=== PATIENT | female | born 1940 | race Caucasian/White ===

== ENCOUNTER 2017-07-24 14:28 | Emergency (ER) | payer MEDICARE, OTHER ==
--- NOTE | 2017-07-24 14:54 | EDM.PDOC ---
ED HPI GENERAL MEDICAL PROBLEM - General Chief Complaint: Laceration Stated Complaint: LEFT SIDE HEAD INJURY Time Seen by Provider: 07/24/17 14:40 Source of Information: Reports: Patient, RN History Limitations: Reports: No Limitations - History of Present Illness INITIAL COMMENTS - FREE TEXT/NARRATIVE: 77 yo female fell today on the ice while visiting the eye doctor. There was no LOC or nausea from the fall. No extremity injury. She did break her glasses and incurred an abrasion to the R anglican area. Her tetanus is UTD. No WERNER. No neck or extremity pain. Onset: Today Onset Date: 07/24/17 Onset Time: 14:00 Duration: Minutes:, Constant Location: Reports: Face Quality: Reports: Dull Severity: Mild Improves with: Reports: None Worsens with: Reports: None Context: Reports: Trauma Associated Symptoms: Reports: No Other Symptoms Treatments PAPER SLITTER: Reports: Other (see below) (none) - Related Data Allergies Allergy/AdvReac Type Severity Reaction Status Date / Time No Known Allergies Allergy Verified 07/24/17 14:44 Home Meds: Home Meds Aspirin [Lo-Dose Aspirin EC] 81 mg PO DAILY 07/24/17 [History] metFORMIN [Glucophage XR] 500 mg PO BIDMEALS 07/24/17 [History] ED ROS GENERAL - Review of Systems Review Of Systems: See Below Constitutional: Reports: No Symptoms HEENT: Reports: No Symptoms Respiratory: Reports: No Symptoms Cardiovascular: Reports: No Symptoms Musculoskeletal: Reports: No Symptoms Skin: Reports: Wound Neurological: Reports: No Symptoms ED EXAM, SKIN/RASH Exam: See Below Exam Limited By: No Limitations General Appearance: Alert, WD/WN, No Apparent Distress Eye Exam: Bilateral Eye: EOMI, Normal Inspection, PERRL Ears: Normal External Exam, Normal Canal, Normal TMs, Hearing Loss Nose: Normal Inspection, Normal Mucosa, No Blood Throat/Mouth: Normal Inspection, Normal Oropharynx, Normal Voice, No Airway Compromise Head: Normocephalic, Facial Tenderness (Mild L anglican tenderness) Neck: Normal Inspection, Supple, Non-Tender, Full Range of Motion Respiratory/Chest: No Respiratory Distress, No Accessory Muscle Use Cardiovascular: Regular Rate, Rhythm Extremities: Normal Inspection, Normal Range of Motion, Non-Tender, No Pedal Edema Neurological: Alert, Oriented, CN II-XII Intact, Normal Cognition, No Motor/ Sensory Deficits Psychiatric: Normal Affect, Normal Mood Skin: Warm, Dry, Wound/Incision (Minor abrasion L anglican area. ) Location, Skin: Face Characteristics: Erythematous (abrasion L anglican) Associated features: Tenderness Course - Vital Signs Last Recorded V/S: Last Vital Signs Temp 34.1 C L 07/24/17 14:47 Pulse 87 07/24/17 14:47 Resp 18 07/24/17 14:47 BP 138/92 H 07/24/17 14:47 Pulse Ox 98 07/24/17 14:47 Departure - Departure Time of Disposition: 14:55 Disposition: Home, Self-Care 01 Condition: Good Clinical Impression: Facial abrasion Qualifiers: Encounter type: initial encounter Qualified Code(s): S00.81XA - Abrasion of other part of head, initial encounter - Discharge Information Referrals: Jatinder Darling MD [Primary Care Provider] - Forms: ED Department Discharge Additional Instructions: Clean wound twice daily with soap and water. Recheck for signs of infection. Use acetaminophen as needed for pain relief.
== END 2017-07-24 14:55 | disposition home or self-care (01) ==
LOC: FB.ED 14:28
DX: S00.81XA Abrasion of other part of head, initial encounter (principal); Z79.82 Long term (current) use of aspirin; Z79.84 Long term (current) use of oral hypoglycemic drugs; W00.9XXA Unspecified fall due to ice and snow, initial encounter
CPT/HCPCS: 99282; 99283

== ENCOUNTER 2020-02-06 14:47 | Inpatient (IN) | payer MEDICARE, OTHER ==
[2020-02-06] MEDS ORDERED: Sodium Chloride 0.9% 500 ML IV ONE (15:31)
--- NOTE | 2020-02-06 16:12 | EDM.PDOC ---
ED HPI GENERAL MEDICAL PROBLEM - General Chief Complaint: Back Pain or Injury Stated Complaint: left hip pain Time Seen by Provider: 02/06/20 16:05 Source of Information: Reports: Other ([facility] RN) History Limitations: Reports: Other (Developmental Delay) - History of Present Illness INITIAL COMMENTS - FREE TEXT/NARRATIVE: Patient fell while attempting to sit in a chair @1 week ago, lowered herself to the floor, no LOC. Since yesterday she has been complaining of left hip pain, low back pain and generalized weakness. Urine is foul smelling per [facility] staff. History is obtained from [facility] RN, patient is unable to give a history. Quality: Reports: Ache Severity: Moderate - Related Data Allergies Allergy/AdvReac Type Severity Reaction Status Date / Time No Known Allergies Allergy Verified 07/24/17 14:44 Home Meds: Home Meds Aspirin [Lo-Dose Aspirin EC] 81 mg PO DAILY 07/24/17 [History] Acetaminophen [Acetaminophen ER] 650 mg PO BID 02/06/20 [History] Acetaminophen [Tylenol] 650 mg PO Q4HR PRN 02/06/20 [History] Cyanocobalamin (Vitamin B-12) [Cyanocobalamin] 1,000 gm MC DAILY 02/06/20 [History] Diclofenac Sodium [Voltaren 1% Gel] 4 gm TOP BID 02/06/20 [History] Glimepiride 2 mg PO DAILY 02/06/20 [History] Insulin Glargine,Hum.Rec.Anlog [Lantus Solostar] 8 unit SQ BEDTIME 02/06/20 [History] Magnesium Hydroxide [Milk of Magnesia] 30 ml PO DAILY PRN 02/06/20 [History] Melatonin 6 mg PO DAILY 02/06/20 [History] Methimazole [Tapazole] 2.5 mg PO DAILY 02/06/20 [History] Multivitamin with Minerals [Multivitamins with Minerals] 1 each PO DAILY 02/06/20 [History] Omeprazole 20 mg PO DAILY 02/06/20 [History] atorvaSTATin [Lipitor] 40 mg PO BEDTIME 02/06/20 [History] lisinopriL [Lisinopril] 10 mg PO DAILY 02/06/20 [History] sitaGLIPtin Phos/Metformin HCl [Janumet 50-1,000 MG] 1 tab PO BID 02/06/20 [History] Past Medical History Cardiovascular History: Reports: Hypertension Psychiatric History: Reports: Other (See Below) (Developmental Delay) Endocrine/Metabolic History: Reports: Diabetes, Type II, Hypothyroidism Social & Family History - Caffeine Use Caffeine Use: Reports: Coffee ED ROS GENERAL - Review of Systems Review Of Systems: Unable To Obtain Reason Not Obtained: Non verbal ED EXAM, GENERAL - Physical Exam Exam: See Below Exam Limited By: No Limitations General Appearance: Alert, WD/WN, No Apparent Distress Eye Exam: Bilateral Eye: EOMI, PERRL Ears: Normal External Exam Nose: Normal Inspection Throat/Mouth: No Airway Compromise Head: Atraumatic, Normocephalic Neck: Full Range of Motion Respiratory/Chest: No Respiratory Distress, Lungs Clear, Normal Breath Sounds Cardiovascular: Regular Rate, Rhythm, No Murmur GI/Abdominal: Normal Bowel Sounds, Soft, Non-Tender, No Distention Back Exam: Full Range of Motion Extremities: Normal Capillary Refill, Other (left hip tenderness) Neurological: Alert, No Motor/Sensory Deficits Skin Exam: Warm, Dry, Intact EKG INTERPRETATION EKG Date: 02/06/20 Time: 16:09 Rhythm: NSR Rate (Beats/Min): 74 [place]: Normal P-Wave: Present QRS: Normal ST-T: Normal QT: Normal Comparison: NA - No Prior EKG Course - Vital Signs Last Recorded V/S: Last Vital Signs Temp 36.9 C 02/06/20 15:04 Pulse 72 02/06/20 17:00 Resp 16 02/06/20 17:00 BP 168/84 H 02/06/20 17:00 Pulse Ox 95 02/06/20 17:00 - Orders/Labs/Meds Orders: Active Orders 24 hr Category Date Time Status EKG Documentation Completion [RC] ASDIRECTED Care 02/06/20 15:31 Active RT Aerosol Therapy [RC] ASDIRECTED Care 02/06/20 18:52 Ordered CULTURE BLOOD [BC] Urgent Lab 02/06/20 16:00 Received CULTURE BLOOD [BC] Urgent Lab 02/06/20 16:05 Received LACTIC ACID [CHEM] Routine Lab 02/06/20 19:00 Ordered Sodium Chloride 0.9% [Saline Flush] Med 02/06/20 15:31 Active 10 ml FLUSH ASDIRECTED PRN Blood Culture x2 Reflex Set [OM.PC] Urgent Oth 02/06/20 15:30 Ordered Saline Lock Insert [OM.PC] Routine Oth 02/06/20 15:31 Ordered EKG 12 Lead [EK] Stat Ther 02/06/20 15:30 Ordered Medication Orders Sodium Chloride (Saline Flush) 10 ml FLUSH ASDIRECTED PRN PRN Reason: Keep Vein Open Last Admin: 02/06/20 17:26 Dose: 10 ml Documented by: JENNY Labs: Laboratory Tests 02/06/20 02/06/20 02/06/20 Range/Units 12:00 16:00 16:00 WBC 9.8 (4.5-12.0) X10-3/uL RBC 3.42 (3.23-5.20) x10(6)uL Hgb 10.5 L (11.5-15.5) g/dL Hct 32.1 (30.0-51.3) % MCV 94.0 (80-96) fL MCH 30.7 (27.7-33.6) pg MCHC 32.7 (32.2-35.4) g/dL RDW 13.4 (11.5-15.5) % Plt Count 473 H (125-369) X10(3)uL MPV 7.7 (7.4-10.4) fL Neut % (Auto) 76.2 (46-82) % Lymph % (Auto) 13.4 (13-37) % [place] % (Auto) 8.4 (4-12) % Eos % (Auto) 2 (1.0-5.0) % Baso % (Auto) 0 (0-2) % Neut # (Auto) 7.5 (1.6-8.3) # Lymph # (Auto) 1.3 (0.6-5.0) # [place] # (Auto) 0.8 (0.0-1.3) # Eos # (Auto) 0.2 (0.0-0.8) # Baso # (Auto) 0.0 (0.0-0.2) # PT 10.4 (9.0-11.1) sec INR 0.96 L (1.00-1.24) APTT 26.3 (24.4-33.2) SECONDS Sodium (135-145) mmol/L Potassium (3.5-5.3) mmol/L Chloride (100-110) mmol/L Carbon Dioxide (21-32) mmol/L BUN (7-18) mg/dL Creatinine (0.55-1.02) mg/dL Est Cr Clr Drug Dosing mL/min Estimated GFR (MDRD) (>60) BUN/Creatinine Ratio (9-20) Glucose (80-116) mg/dL Lactic Acid (0.4-2.0) mmol/L Calcium (8.6-10.2) mg/dL Total Bilirubin (0.1-1.3) mg/dL AST (5-25) IU/L ALT (12-36) U/L Alkaline Phosphatase (56-112) IU/L Troponin I (4.0-60.3) pg/mL Total Protein (6.0-8.0) g/dL Albumin (3.2-4.6) g/dL Globulin g/dL Albumin/Globulin Ratio Urine Color Yellow (YELLOW) Urine Appearance Clear (CLEAR) Urine pH 7.0 H (5.0-6.5) Ur Specific [place] 1.015 (1.010-1.025) Urine Protein 30 H (NEGATIVE) mg/dL Urine Glucose (UA) Normal (NORMAL) mg/dL Urine Ketones Negative (NEGATIVE) mg/dL Urine Occult Blood Trace (NEGATIVE) Urine Nitrite Negative (NEGATIVE) Urine Bilirubin Negative (NEGATIVE) Urine Urobilinogen Normal (NEGATIVE) mg/dL Ur Leukocyte Esterase Negative (NEGATIVE) Urine RBC 0-5 (0-5) Urine WBC 0-5 (0-5) Ur Squamous Epith Cells Occasional (NS,R,O) Urine Bacteria Few H (NS) 02/06/20 02/06/20 02/06/20 Range/Units 16:00 16:00 16:00 WBC (4.5-12.0) X10-3/uL RBC (3.23-5.20) x10(6)uL Hgb (11.5-15.5) g/dL Hct (30.0-51.3) % MCV (80-96) fL MCH (27.7-33.6) pg MCHC (32.2-35.4) g/dL RDW (11.5-15.5) % Plt Count (125-369) X10(3)uL MPV (7.4-10.4) fL Neut % (Auto) (46-82) % Lymph % (Auto) (13-37) % [place] % (Auto) (4-12) % Eos % (Auto) (1.0-5.0) % Baso % (Auto) (0-2) % Neut # (Auto) (1.6-8.3) # Lymph # (Auto) (0.6-5.0) # [place] # (Auto) (0.0-1.3) # Eos # (Auto) (0.0-0.8) # Baso # (Auto) (0.0-0.2) # PT (9.0-11.1) sec INR (1.00-1.24) APTT (24.4-33.2) SECONDS Sodium 141 (135-145) mmol/L Potassium 5.2 (3.5-5.3) mmol/L Chloride 106 (100-110) mmol/L Carbon Dioxide 23 (21-32) mmol/L BUN 38 H (7-18) mg/dL Creatinine 1.2 H (0.55-1.02) mg/dL Est Cr Clr Drug Dosing 28.21 mL/min Estimated GFR (MDRD) 43 L (>60) BUN/Creatinine Ratio 31.7 H (9-20) Glucose 120 H (80-116) mg/dL Lactic Acid 4.1 H* (0.4-2.0) mmol/L Calcium 8.8 (8.6-10.2) mg/dL Total Bilirubin 0.2 (0.1-1.3) mg/dL AST 17 (5-25) IU/L ALT 24 D (12-36) U/L Alkaline Phosphatase 106 (56-112) IU/L Troponin I 9.4 (4.0-60.3) pg/mL Total Protein 6.7 (6.0-8.0) g/dL Albumin 2.9 L (3.2-4.6) g/dL Globulin 3.8 g/dL Albumin/Globulin Ratio 0.8 Urine Color (YELLOW) Urine Appearance (CLEAR) Urine pH (5.0-6.5) Ur Specific [place] (1.010-1.025) Urine Protein (NEGATIVE) mg/dL Urine Glucose (UA) (NORMAL) mg/dL Urine Ketones (NEGATIVE) mg/dL Urine Occult Blood (NEGATIVE) Urine Nitrite (NEGATIVE) Urine Bilirubin (NEGATIVE) Urine Urobilinogen (NEGATIVE) mg/dL Ur Leukocyte Esterase (NEGATIVE) Urine RBC (0-5) Urine WBC (0-5) Ur Squamous Epith Cells (NS,R,O) Urine Bacteria (NS) Meds: Medications Generic Name Dose Route Start Last Admin Trade Name Freq PRN Reason Stop Dose Admin Sodium Chloride 10 ml 02/06/20 15:31 02/06/20 17:26 Saline Flush FLUSH 10 ml ASDIRECTED PRN Administration Keep Vein Open Discontinued Medications Generic Name Dose Route Start Last Admin Trade Name Freq PRN Reason Stop Dose Admin Albuterol 2.5 mg 02/06/20 18:51 Proventil Neb Soln NEB 02/06/20 18:52 ONETIME ONE Furosemide 20 mg 02/06/20 18:51 Lasix IVPUSH 02/06/20 18:52 ONETIME ONE Sodium Chloride 500 mls @ 500 mls/hr 02/06/20 15:31 02/06/20 16:10 Normal Saline IV 02/06/20 16:30 500 mls/hr .BOLUS ONE Administration Sodium Chloride 1,000 mls @ 999 mls/hr 02/06/20 16:40 02/06/20 17:26 Normal Saline IV 02/06/20 17:40 999 mls/hr .BOLUS ONE Administration Piperacillin Sod/Tazobactam 50 mls @ 100 mls/hr 02/06/20 16:43 02/06/20 16:54 Sod 3.375 gm/ Sodium Chloride IV 02/06/20 17:12 100 mls/hr .ONCE ONE Administration Vancomycin HCl 1.25 gm/ Sodium 250 mls @ 167 mls/hr 02/06/20 16:44 02/06/20 17:28 Chloride IV 02/06/20 18:13 167 mls/hr .ONCE ONE Administration Ketorolac Tromethamine 15 mg 02/06/20 17:17 02/06/20 17:44 Toradol IVPUSH 02/06/20 17:18 15 mg ONETIME ONE Administration - Radiology Interpretation Free Text/Narrative:: CXR: No acute process, but cannot completely rule out infiltrates in the lung bases. (per Dr. Beltrán) Head CT w/o contrast: No acute process. (per Dr. Beltrán) CT C-spine w/o contrast: No fracture or subluxation. (per Dr. Beltrán) CT L-spine w/o contrast: No fracture of subluxation. (per Dr. Beltrán) Pelvis CT w/ contrast: No fractures. (per Dr. Beltrán) - Re-Assessments/Exams Free Text/Narrative Re-Assessment/Exam: 02/06/20 18:53 Sa02 dropped to 88% RA, wheezes ascultated in bilateral lung barrera, no respiratory distress, Sa02 97% on 2L 02 NC. Patient most likely fluid overloaded. Will order Lasix 20mg IV and Albuterol Neb. 02/06/20 19:00 Patient care transferred to Dr. Klein. Departure - Departure Time of Disposition: 19:00 Disposition: Still A Patient 30 Clinical Impression: Elevated lactic acid level Fluid overload Qualifiers: Hypervolemia type: unspecified Qualified Code(s): E87.70 - Fluid overload, unspecified - Discharge Information Referrals: Jatinder Darling MD [Primary Care Provider] - Forms: ED Department Discharge Sepsis Event Note (ED) - Evaluation Sepsis Screening Result: No Definite Risk - Focused Exam Vital Signs: Vital Signs Temp Pulse Resp BP Pulse Ox 02/06/20 17:00 72 16 168/84 H 95 02/06/20 16:45 72 16 172/68 H 95 02/06/20 16:39 74 16 177/64 H 95 02/06/20 15:45 72 16 139/64 95 02/06/20 15:04 36.9 C 74 18 182/76 H 95 02/06/20 14:47 36.4 C 82 15 162/95 H 98 - My Orders Last 24 Hours: My Active Orders 02/06/20 15:30 Blood Culture x2 Reflex Set [OM.PC] Urgent EKG 12 Lead [EK] Stat 02/06/20 15:31 EKG Documentation Completion [RC] ASDIRECTED Sodium Chloride 0.9% [Saline Flush] 10 ml FLUSH ASDIRECTED PRN Saline Lock Insert [OM.PC] Routine 02/06/20 16:00 CULTURE BLOOD [BC] Urgent 02/06/20 16:05 CULTURE BLOOD [BC] Urgent 02/06/20 18:52 RT Aerosol Therapy [RC] ASDIRECTED 02/06/20 19:00 LACTIC ACID [CHEM] Routine - Assessment/Plan Last 24 Hours: My Active Orders 02/06/20 15:30 Blood Culture x2 Reflex Set [OM.PC] Urgent EKG 12 Lead [EK] Stat 02/06/20 15:31 EKG Documentation Completion [RC] ASDIRECTED Sodium Chloride 0.9% [Saline Flush] 10 ml FLUSH ASDIRECTED PRN Saline Lock Insert [OM.PC] Routine 02/06/20 16:00 CULTURE BLOOD [BC] Urgent 02/06/20 16:05 CULTURE BLOOD [BC] Urgent 02/06/20 18:52 RT Aerosol Therapy [RC] ASDIRECTED 02/06/20 19:00 LACTIC ACID [CHEM] Routine
[2020-02-06] MEDS ORDERED: Sodium Chloride 0.9% 1,000 ML IV ONE (16:40)
[2020-02-06] MEDS ORDERED: Piperacillin/Tazobactam 3.375 GM in Sodium Chloride 0.9% 50 ML IV ONE (16:43)
[2020-02-06] MEDS ORDERED: Ketorolac 30 MG/ML SDV IVPUSH ONE (17:17)
[2020-02-06] MEDS: Sodium Chloride 0.9% 10 ML Syringe FLUSH PRN ×2 (17:26→19:00)
--- NOTE | 2020-02-06 18:05 | CT ---
INDICATION: Fall. CT HEAD WITHOUT CONTRAST: Spiral 3.75 mm axial sections were obtained through the brain without contrast 02/06/2020 - no comparisons. Total exam DLP was 1322.30 mGy-cm. The paranasal sinuses and right mastoid air cells were well aerated. The left mastoid air cells were mostly opacified, possibly on the basis of mastoiditis - correlate clinically. No cranial fracture site was noted. The cranium appears to be intact. The orbits were intact. Calcifications are noted in the vertebral and internal carotid arteries. No shift of midline structures was noted. Ventricles appear to be only minimally prominent. Cortical sulci are slightly prominent, suggesting generalized atrophy of mild degree. There are white matter changes likely on the basis of mild microvascular disease-type changes. No evidence of a bleeding site or hematoma was identified. Prominent choroid plexuses calcifications are noted incidentally. IMPRESSION: 1. No acute intracranial abnormality. 2. Mild generalized atrophy. 3. Cerebrovascular disease. INDICATION: Fall. CT OF THE CERVICAL SPINE: Spiral 2.5 mm axial sections were obtained through the cervical spine with sagittal and coronal reconstructions 02/06/20 - no comparisons. Total exam DLP was 398.87 mGy-cm. Degenerative changes are noted at the odontoatlantian joint. The odontoid appeared to be intact. The atlas and axis appeared to be intact. Vertebral body heights appear to be well maintained without a definite acute fracture or dislocation identified. Moderate to moderately severe anterior bridging hypertrophic degenerative changes are noted at C3 through C7, somewhat less prominent at C6-7. There are also bridging hyperostotic changes at C7-T1 and T1-T2 and to a lesser extent T2- T3 anteriorly off vertebral bodies. Posterior hypertrophic changes are noted at C4-5. Degenerative disk disease with narrowing of the disk spaces is noted at C3 through C6 with relatively mild narrowing at C6-7. Sclerosis and subchondral cystic changes are noted throughout the cervical spine including at the odontoatlantian joint to a lesser extent. Uncinate joint degenerative changes are noted from C2 through C7-T1. Narrowing of neural foraminal is noted in the cervical spine up to the C5-6 level, more prominently on the right than left. Prevertebral spaces appear to be normal. There is slight straightening of the normal cervical lordosis of the mid to upper cervical spine. Hypertrophic changes are noted at the lateral masses prominently at C2-3 on the left and to a relatively mild degree elsewhere in the remainder of the spine. There appear to be some areas of scarring in the lungs visualized. IMPRESSION: 1. No definite acute fracture or dislocation. 2. Diffuse degenerative changes and disk disease. INDICATION: Fall. COMPUTERIZED TOMOGRAPHY OF THE LUMBOSACRAL SPINE WITHOUT CONTRAST: Spiral 2.5 mm axial sections were obtained through the lumbosacral spine and revealed demineralization, compatible with osteoporosis. Total exam DLP was 720.77 mGy-cm. Vertebral body heights were fairly well maintained. Neural foramina for the most part were fairly patent but with some bulging disks in the mid to lower levels, definitely impinging at least slightly on the neural foramina, especially below the L1-2 level. Narrowing of the disk space and vacuum disk phenomenon are noted at L5-S1 with hypertrophic degenerative changes anteriorly and posteriorly off the L5-S1 vertebral bodies. There are also hypertrophic degenerative changes noted off the thoracolumbar though lumbosacral levels to varying degrees, most severe at the L1-2, L2-3 levels laterally on the right especially. A definite acute fracture or dislocation was not identified. Dextroconcave scoliosis of the upper middle lumbar spine is noted. Mild spinal stenosis is noted at L2-3 due to bulging disk and prominent ligamentum flava as well as hypertrophic changes at the posterior elements. Slightly more prominent spinal stenosis is noted at the L3-4 level for the same reasons. Milder spinal stenosis is noted at L4-5. IMPRESSION: 1. No acute fracture or dislocation identified. 2. Hypertrophic degenerative changes and bulging disks with areas of spinal stenosis, most prominent at L3-4. 3. Moderate dextroconcave scoliosis upper middle lumbar spine. INDICATION: Fall. CT OF THE PELVIS WITHOUT CONTRAST: Spiral axial 1.25 mm sections were obtained through the pelvis with sagittal and coronal reconstructions 02/06/20 - no comparisons. Total exam DLP was 377.53 mGy-cm. Degenerative changes and disk disease noted at L5-S1. Mild to moderate degenerative changes are noted at the sacroiliac joints, right greater than left. Sacroiliac joints were otherwise intact. Extensive arterial calcifications are noted. The sacrum, coccyx and remainder of the pelvis as well as the hips appear to be intact without a definite acute fracture or dislocation. Sclerotic density in the right ilium inferoposteriorly is compatible with a benign bone island. There are some degenerative changes at the hip joints, minimal on the left, mild to moderate on the right. Sigmoid diverticulosis is noted without definite evidence of diverticulitis. IMPRESSION: 1. No evidence of an acute fracture or dislocation. 2. ASD. 3. Sigmoid diverticulosis. Report was called to Dr. Stapleton for all of the above reports at 1723 hours. [facility]
--- NOTE | 2020-02-06 18:08 | CR ---
INDICATION: Elevated lactic acid. CHEST X-RAY, ONE VIEW: Portable AP upright view of the chest was obtained 02/06/20 and revealed the heart to be enlarged. Very poor inspiration is noted, emphasizing markings. No definite CHF or consolidating pneumonia was identified. No large pleural effusion was seen. IMPRESSION: Somewhat limited study. No definite acute process, but difficult to entirely exclude minimal patchy pneumonia at the lung bases. No gross evidence of CHF is seen. Report was called to Dr. Stapleton at 1723 hours. [facility]
[2020-02-06] MEDS ORDERED: Furosemide 20 MG/2 ML VIAL IVPUSH ONE (18:51)
[2020-02-06] MEDS ORDERED: Albuterol 0.083% 2.5 MG/3 ML Neb Soln NEB ONE (18:51)
[2020-02-06] MEDS ORDERED: Albuterol 0.083% 2.5 MG/3 ML Neb Soln NEB PRN (19:27)
[2020-02-06] MEDS ORDERED: Acetaminophen 325 MG Tab PO PRN (19:30)
[2020-02-06] MEDS ORDERED: metFORMIN 500 MG Tab PO ONE (22:24)
[2020-02-06] MEDS: Non-Formulary Medication 1 Each (Sitagliptin Phos/Metformin Hcl [Janumet 50-1,000 Mg] 1 TA PO SCH (22:28)
[2020-02-06] MEDS: Acetaminophen 650 MG Tab.ER PO SCH (22:38)
[2020-02-07] MEDS: Sodium Chloride 0.9% 10 ML Syringe FLUSH PRN (07:57)
[2020-02-07] MEDS ORDERED: Aspirin 81 MG Tab.EC PO SCH (09:00)
[2020-02-07] MEDS ORDERED: Glimepiride 2 MG Tab PO SCH (09:00)
[2020-02-07] MEDS ORDERED: Melatonin 3 MG Tab PO SCH (09:00)
[2020-02-07] MEDS ORDERED: Non-Formulary Medication 1 Each (Omeprazole [Omeprazole] 20 MG) PO SCH (09:00)
[2020-02-07] MEDS ORDERED: Lisinopril 10 MG Tab PO SCH (09:00)
--- NOTE | 2020-02-07 10:37 | ER ---
DATE SEEN: 02/06/2020 REASON FOR VISIT: Fall. HISTORY OF PRESENT ILLNESS: This is an 80-year-old female who was seen earlier by Dr. Stapleton. He handed over to me. [facility] Initial workup for any trauma was negative. She, however, has been noted to be extremely weak and needing 2 people for assistance and transfer. There has been no report of fever. She became hypoxic in the ER after she got 1 L of normal saline. PHYSICAL EXAMINATION: GENERAL: She is not in distress. VITAL SIGNS: Blood pressure is 172/68 and she does have normal pulse and oxygenation of 95%. ENT: Negative. NECK: Supple. CARDIOVASCULAR: Normal. RESPIRATORY SYSTEM: She has end-expiratory rhonchi. EXTREMITIES: No edema. MENTAL STATUS: She is alert. Mild cognitive dysfunction is noted. LABORATORY DATA: Reviewed including a recent lactic acid of 2.8, previously 4.1 and normal white cell count. Chest x-ray was negative. UA was normal. IMPRESSION: 1. Generalized weakness. 2. Hypertension. 3. Lower back pain and hip pain. PLAN: We will admit for observation, pain control, and physical therapy. Hopefully, she will be able to go home tomorrow or the day after tomorrow. /[id number] MAIKEL/SAUL
[2020-02-07] MEDS: Acetaminophen 650 MG Tab.ER PO SCH (11:20)
[2020-02-07] MEDS: Non-Formulary Medication 1 Each (Sitagliptin Phos/Metformin Hcl [Janumet 50-1,000 Mg] 1 TA PO SCH (11:21)
[2020-02-07] MEDS: Acetaminophen 500 MG Tab PO SCH ×3 (11:33→22:23)
[2020-02-07] MEDS: Pantoprazole 40 MG Tab.CR PO SCH (11:33)
[2020-02-07] MEDS: Aspirin 81 MG Tab.EC PO SCH (11:33)
[2020-02-07] MEDS: Ibuprofen 200 MG Tab PO SCH ×3 (11:33→22:23)
[2020-02-07] MEDS: Lisinopril 10 MG Tab PO SCH (11:33)
[2020-02-07] MEDS: Glimepiride 2 MG Tab PO SCH (11:33)
--- NOTE | 2020-02-07 11:53 | PCM.HP.2 ---
H&P History of Present Illness - General Date of Service: 02/07/20 Admit Problem/Dx: Admission Diagnosis/Problem Admission Diagnosis/Problem Weakness Source of Information: Patient, EMS Notes Reviewed, Family - History of Present Illness Initial Comments - Free Text/Narative: Hailey presented to ER yesterday with increased weakness, for past few days, usually independent for meals, sit up and stand up at [facility]. Had a fall 2 weeks ago, forgot to lock the brakes on her front wheel walker and went to sit on it and walker went out from underneath her. Was having more left hip pain, not able to sit up for lunch today, spoke with Toby Osorio PA-C and Dr Darling, would advised transfer to ER for evaluation. History limited due patient's developmental delay but this morning states her left hip hurts, no fractures were seen on CT scans yesterday, no pneumonia on x-ray. Denies being short of b reath, chest pain, cough, stomach doesn't hurt. Her sister's stated that they do have PT/OT at [facility] if she would need to continue therapies. [place] staff reported foul smelling urine but UA here is negative. Lactic acid was elevated in ER, received 1 dose of Zosyn & Vancomycin, but not continued on the floor. WBC was normal last night and this morning. She is on metformin in Janumet combination, was given dose last night but held this morning. No fevers. No hypotension. Left Hip Pain Score (Numeric/FACES): 4 - Related Data Allergies/Adverse Reactions: Allergies Allergy/AdvReac Type Severity Reaction Status Date / Time No Known Allergies Allergy Verified 07/24/17 14:44 Home Medications: Home Meds Aspirin [Lo-Dose Aspirin EC] 81 mg PO DAILY 07/24/17 [History] Acetaminophen [Acetaminophen ER] 650 mg PO BID 02/06/20 [History] Acetaminophen [Tylenol] 650 mg PO Q4HR PRN 02/06/20 [History] Cyanocobalamin (Vitamin B-12) [Cyanocobalamin] 1,000 gm MC DAILY 02/06/20 [History] Diclofenac Sodium [Voltaren 1% Gel] 4 gm TOP BID 02/06/20 [History] Glimepiride 2 mg PO DAILY 02/06/20 [History] Insulin Glargine,Hum.Rec.Anlog [Lantus Solostar] 8 unit SQ BEDTIME 02/06/20 [History] Magnesium Hydroxide [Milk of Magnesia] 30 ml PO DAILY PRN 02/06/20 [History] Melatonin 6 mg PO DAILY 02/06/20 [History] Methimazole [Tapazole] 2.5 mg PO DAILY 02/06/20 [History] Multivitamin with Minerals [Multivitamins with Minerals] 1 each PO DAILY 02/06/20 [History] Omeprazole 20 mg PO DAILY 02/06/20 [History] atorvaSTATin [Lipitor] 40 mg PO BEDTIME 02/06/20 [History] lisinopriL [Lisinopril] 10 mg PO DAILY 02/06/20 [History] sitaGLIPtin Phos/Metformin HCl [Janumet 50-1,000 MG] 1 tab PO BID 02/06/20 [History] Past Medical History - Past Health History Medical/Surgical History: Denies Medical/Surgical History HEENT History: Reports: Cataract, Hard of Hearing, Impaired Vision Cardiovascular History: Reports: Hypertension Gastrointestinal History: Reports: Diverticulosis Neurological History: Reports: Other (See Below) Other Neuro History: Intellectual disability. Psychiatric History: Reports: Learning Disability Endocrine/Metabolic History: Reports: Diabetes, Type II, Hypothyroidism Hematologic History: Reports: Anemia Social & Family History - Family History Family Medical History: Noncontributory - Tobacco Use Smoking Status *Q: Never Smoker Second Hand Smoke Exposure: No - Caffeine Use Caffeine Use: Reports: Soda - Recreational Drug Use Recreational Drug Use: No H&P Review of Systems - Review of Systems: Review Of Systems: See Below General: Denies: Fever Pulmonary: Reports: No Symptoms Cardiovascular: Reports: No Symptoms Gastrointestinal: Reports: No Symptoms Musculoskeletal: Reports: Joint Pain (left hip) Skin: Reports: No Symptoms Neurological: Reports: Pre-Existing Deficit Exam - Exam Exam: See Below - Vital Signs Vital Signs: Last Vital Signs Temp 98.1 F 02/07/20 07:50 Pulse 84 02/07/20 07:50 Resp 20 02/07/20 07:50 BP 144/82 H 02/07/20 11:33 Pulse Ox 95 02/07/20 07:50 Weight: 131 lb 14.4 oz - Exam General: Alert, Oriented (person), Cooperative. No: Mild Distress HEENT: PERRLA, Conjunctiva Clear, Hearing Intact, Mucosa Moist & Jaconita Lungs: Clear to Auscultation, Normal Respiratory Effort Cardiovascular: Regular Rate, Regular Rhythm GI/Abdominal Exam: Normal Bowel Sounds, Soft, Non-Tender, No Distention (Female) Exam: Deferred Rectal (Female) Exam: Deferred Extremities: No Pedal Edema, Leg Pain (left hip TTP over greater trochanter). No: Joint Swelling, Increased Warmth, Redness Peripheral Pulses: 2+: Radial (L), Radial (R) Skin: Warm, Dry, Intact Neuro Extensive - Motor, Sensory, Reflexes: Other (Developmental delay) - Patient Data Lab Results Last 24 hrs: Laboratory Results - last 24 hr 02/06/20 02/06/20 02/06/20 Range/Units 12:00 16:00 16:00 WBC 9.8 (4.5-12.0) X10-3/uL RBC 3.42 (3.23-5.20) x10(6)uL Hgb 10.5 L (11.5-15.5) g/dL Hct 32.1 (30.0-51.3) % MCV 94.0 (80-96) fL MCH 30.7 (27.7-33.6) pg MCHC 32.7 (32.2-35.4) g/dL RDW 13.4 (11.5-15.5) % Plt Count 473 H (125-369) X10(3)uL MPV 7.7 (7.4-10.4) fL Neut % (Auto) 76.2 (46-82) % Lymph % (Auto) 13.4 (13-37) % [place] % (Auto) 8.4 (4-12) % Eos % (Auto) 2 (1.0-5.0) % Baso % (Auto) 0 (0-2) % Neut # (Auto) 7.5 (1.6-8.3) # Lymph # (Auto) 1.3 (0.6-5.0) # [place] # (Auto) 0.8 (0.0-1.3) # Eos # (Auto) 0.2 (0.0-0.8) # Baso # (Auto) 0.0 (0.0-0.2) # PT 10.4 (9.0-11.1) sec INR 0.96 L (1.00-1.24) APTT 26.3 (24.4-33.2) SECONDS Sodium (135-145) mmol/L Potassium (3.5-5.3) mmol/L Chloride (100-110) mmol/L Carbon Dioxide (21-32) mmol/L BUN (7-18) mg/dL Creatinine (0.55-1.02) mg/dL Est Cr Clr Drug Dosing mL/min Estimated GFR (MDRD) (>60) BUN/Creatinine Ratio (9-20) Glucose (80-116) mg/dL POC Glucose (80-116) mg/dL Lactic Acid (0.4-2.0) mmol/L Calcium (8.6-10.2) mg/dL Total Bilirubin (0.1-1.3) mg/dL AST (5-25) IU/L ALT (12-36) U/L Alkaline Phosphatase (56-112) IU/L Troponin I (4.0-60.3) pg/mL Total Protein (6.0-8.0) g/dL Albumin (3.2-4.6) g/dL Globulin g/dL Albumin/Globulin Ratio Urine Color Yellow (YELLOW) Urine Appearance Clear (CLEAR) Urine pH 7.0 H (5.0-6.5) Ur Specific [place] 1.015 (1.010-1.025) Urine Protein 30 H (NEGATIVE) mg/dL Urine Glucose (UA) Normal (NORMAL) mg/dL Urine Ketones Negative (NEGATIVE) mg/dL Urine Occult Blood Trace (NEGATIVE) Urine Nitrite Negative (NEGATIVE) Urine Bilirubin Negative (NEGATIVE) Urine Urobilinogen Normal (NEGATIVE) mg/dL Ur Leukocyte Esterase Negative (NEGATIVE) Urine RBC 0-5 (0-5) Urine WBC 0-5 (0-5) Ur Squamous Epith Cells Occasional (NS,R,O) Urine Bacteria Few H (NS) 02/06/20 02/06/20 02/06/20 Range/Units 16:00 16:00 16:00 WBC (4.5-12.0) X10-3/uL RBC (3.23-5.20) x10(6)uL Hgb (11.5-15.5) g/dL Hct (30.0-51.3) % MCV (80-96) fL MCH (27.7-33.6) pg MCHC (32.2-35.4) g/dL RDW (11.5-15.5) % Plt Count (125-369) X10(3)uL MPV (7.4-10.4) fL Neut % (Auto) (46-82) % Lymph % (Auto) (13-37) % [place] % (Auto) (4-12) % Eos % (Auto) (1.0-5.0) % Baso % (Auto) (0-2) % Neut # (Auto) (1.6-8.3) # Lymph # (Auto) (0.6-5.0) # [place] # (Auto) (0.0-1.3) # Eos # (Auto) (0.0-0.8) # Baso # (Auto) (0.0-0.2) # PT (9.0-11.1) sec INR (1.00-1.24) APTT (24.4-33.2) SECONDS Sodium 141 (135-145) mmol/L Potassium 5.2 (3.5-5.3) mmol/L Chloride 106 (100-110) mmol/L Carbon Dioxide 23 (21-32) mmol/L BUN 38 H (7-18) mg/dL Creatinine 1.2 H (0.55-1.02) mg/dL Est Cr Clr Drug Dosing 28.21 mL/min Estimated GFR (MDRD) 43 L (>60) BUN/Creatinine Ratio 31.7 H (9-20) Glucose 120 H (80-116) mg/dL POC Glucose (80-116) mg/dL Lactic Acid 4.1 H* (0.4-2.0) mmol/L Calcium 8.8 (8.6-10.2) mg/dL Total Bilirubin 0.2 (0.1-1.3) mg/dL AST 17 (5-25) IU/L ALT 24 D (12-36) U/L Alkaline Phosphatase 106 (56-112) IU/L Troponin I 9.4 (4.0-60.3) pg/mL Total Protein 6.7 (6.0-8.0) g/dL Albumin 2.9 L (3.2-4.6) g/dL Globulin 3.8 g/dL Albumin/Globulin Ratio 0.8 Urine Color (YELLOW) Urine Appearance (CLEAR) Urine pH (5.0-6.5) Ur Specific [place] (1.010-1.025) Urine Protein (NEGATIVE) mg/dL Urine Glucose (UA) (NORMAL) mg/dL Urine Ketones (NEGATIVE) mg/dL Urine Occult Blood (NEGATIVE) Urine Nitrite (NEGATIVE) Urine Bilirubin (NEGATIVE) Urine Urobilinogen (NEGATIVE) mg/dL Ur Leukocyte Esterase (NEGATIVE) Urine RBC (0-5) Urine WBC (0-5) Ur Squamous Epith Cells (NS,R,O) Urine Bacteria (NS) 02/06/20 02/07/20 02/07/20 Range/Units 19:10 06:40 06:40 WBC 8.4 (4.5-12.0) X10-3/uL RBC 3.26 (3.23-5.20) x10(6)uL Hgb 9.9 L (11.5-15.5) g/dL Hct 30.6 (30.0-51.3) % MCV 94.0 (80-96) fL MCH 30.4 (27.7-33.6) pg MCHC 32.3 (32.2-35.4) g/dL RDW 13.5 (11.5-15.5) % Plt Count 442 H (125-369) X10(3)uL MPV 7.6 (7.4-10.4) fL Neut % (Auto) 70.6 (46-82) % Lymph % (Auto) 18.4 (13-37) % [place] % (Auto) 8.4 (4-12) % Eos % (Auto) 2 (1.0-5.0) % Baso % (Auto) 1 (0-2) % Neut # (Auto) 6.0 (1.6-8.3) # Lymph # (Auto) 1.5 (0.6-5.0) # [place] # (Auto) 0.7 (0.0-1.3) # Eos # (Auto) 0.2 (0.0-0.8) # Baso # (Auto) 0.0 (0.0-0.2) # PT (9.0-11.1) sec INR (1.00-1.24) APTT (24.4-33.2) SECONDS Sodium 142 (135-145) mmol/L Potassium 4.8 (3.5-5.3) mmol/L Chloride 110 (100-110) mmol/L Carbon Dioxide 23 (21-32) mmol/L BUN 31 H (7-18) mg/dL Creatinine 1.0 (0.55-1.02) mg/dL Est Cr Clr Drug Dosing 33.86 mL/min Estimated GFR (MDRD) 53 L (>60) BUN/Creatinine Ratio 31.0 H (9-20) Glucose 74 L (80-116) mg/dL POC Glucose (80-116) mg/dL Lactic Acid 2.8 H* (0.4-2.0) mmol/L Calcium 8.2 L (8.6-10.2) mg/dL Total Bilirubin (0.1-1.3) mg/dL AST (5-25) IU/L ALT (12-36) U/L Alkaline Phosphatase (56-112) IU/L Troponin I (4.0-60.3) pg/mL Total Protein (6.0-8.0) g/dL Albumin (3.2-4.6) g/dL Globulin g/dL Albumin/Globulin Ratio Urine Color (YELLOW) Urine Appearance (CLEAR) Urine pH (5.0-6.5) Ur Specific [place] (1.010-1.025) Urine Protein (NEGATIVE) mg/dL Urine Glucose (UA) (NORMAL) mg/dL Urine Ketones (NEGATIVE) mg/dL Urine Occult Blood (NEGATIVE) Urine Nitrite (NEGATIVE) Urine Bilirubin (NEGATIVE) Urine Urobilinogen (NEGATIVE) mg/dL Ur Leukocyte Esterase (NEGATIVE) Urine RBC (0-5) Urine WBC (0-5) Ur Squamous Epith Cells (NS,R,O) Urine Bacteria (NS) 02/07/20 02/07/20 Range/Units 06:40 11:29 WBC (4.5-12.0) X10-3/uL RBC (3.23-5.20) x10(6)uL Hgb (11.5-15.5) g/dL Hct (30.0-51.3) % MCV (80-96) fL MCH (27.7-33.6) pg MCHC (32.2-35.4) g/dL RDW (11.5-15.5) % Plt Count (125-369) X10(3)uL MPV (7.4-10.4) fL Neut % (Auto) (46-82) % Lymph % (Auto) (13-37) % [place] % (Auto) (4-12) % Eos % (Auto) (1.0-5.0) % Baso % (Auto) (0-2) % Neut # (Auto) (1.6-8.3) # Lymph # (Auto) (0.6-5.0) # [place] # (Auto) (0.0-1.3) # Eos # (Auto) (0.0-0.8) # Baso # (Auto) (0.0-0.2) # PT (9.0-11.1) sec INR (1.00-1.24) APTT (24.4-33.2) SECONDS Sodium (135-145) mmol/L Potassium (3.5-5.3) mmol/L Chloride (100-110) mmol/L Carbon Dioxide (21-32) mmol/L BUN (7-18) mg/dL Creatinine (0.55-1.02) mg/dL Est Cr Clr Drug Dosing mL/min Estimated GFR (MDRD) (>60) BUN/Creatinine Ratio (9-20) Glucose (80-116) mg/dL POC Glucose 154 H (80-116) mg/dL Lactic Acid (0.4-2.0) mmol/L Calcium (8.6-10.2) mg/dL Total Bilirubin (0.1-1.3) mg/dL AST (5-25) IU/L ALT (12-36) U/L Alkaline Phosphatase (56-112) IU/L Troponin I 9.5 (4.0-60.3) pg/mL Total Protein (6.0-8.0) g/dL Albumin (3.2-4.6) g/dL Globulin g/dL Albumin/Globulin Ratio Urine Color (YELLOW) Urine Appearance (CLEAR) Urine pH (5.0-6.5) Ur Specific [place] (1.010-1.025) Urine Protein (NEGATIVE) mg/dL Urine Glucose (UA) (NORMAL) mg/dL Urine Ketones (NEGATIVE) mg/dL Urine Occult Blood (NEGATIVE) Urine Nitrite (NEGATIVE) Urine Bilirubin (NEGATIVE) Urine Urobilinogen (NEGATIVE) mg/dL Ur Leukocyte Esterase (NEGATIVE) Urine RBC (0-5) Urine WBC (0-5) Ur Squamous Epith Cells (NS,R,O) Urine Bacteria (NS) Result Diagrams: 02/07/20 06:40 02/07/20 06:40 Sepsis Event Note - Evaluation Sepsis Screening Result: No Definite Risk - Focused Exam Vital Signs: Vital Signs Temp Pulse Resp BP BP Pulse Ox Pulse Ox 02/07/20 11:33 144/82 H 02/07/20 07:50 98.1 F 84 20 138/61 95 02/07/20 04:00 94 L 02/07/20 02:00 99 F 84 20 152/79 H 94 L Date Exam was Performed: 02/07/20 Time Exam was Performed: 12:10 *Q Meaningful Use (ADM) - VTE Risk Assess *Q Each Risk Factor Represents 3 Points: Age 75 Years or Greater Total Score 3 Point Risk Factors: 3 - Problem List (1) Elevated lactic acid level SNOMED Code(s): 6926907 ICD Code: R79.89 - OTHER SPECIFIED ABNORMAL FINDINGS OF BLOOD CHEMISTRY Status: Acute Current Visit: Yes (2) Left hip pain SNOMED Code(s): 76488349 ICD Code: M25.552 - PAIN IN LEFT HIP Status: Acute Current Visit: Yes (3) Weakness SNOMED Code(s): 85037652 ICD Code: R53.1 - WEAKNESS Status: Acute Current Visit: Yes (4) Fall SNOMED Code(s): 1876093, 198172112 ICD Code: W19.XXXA - UNSPECIFIED FALL, INITIAL ENCOUNTER Status: Acute Current Visit: Yes (5) Diabetes SNOMED Code(s): 86365997 ICD Code: E11.9 - TYPE 2 DIABETES MELLITUS WITHOUT COMPLICATIONS Status: Chronic Current Visit: Yes Qualifiers: Diabetes mellitus type: type 2 Diabetes mellitus prison insulin use: wit h prison use (6) Hyperlipidemia SNOMED Code(s): 04733771 ICD Code: E78.5 - HYPERLIPIDEMIA, UNSPECIFIED Status: Chronic Current Visit: Yes (7) Insomnia SNOMED Code(s): 534107165 ICD Code: G47.00 - INSOMNIA, UNSPECIFIED Status: Chronic Current Visit: Yes (8) Hypertension SNOMED Code(s): 45996440 ICD Code: I10 - ESSENTIAL (PRIMARY) HYPERTENSION Status: Chronic Current Visit: Yes (9) Diverticula of colon SNOMED Code(s): 861370746, 228101451 ICD Code: K57.30 - DVRTCLOS OF LG INT W/O PERFORATION OR ABSCESS W/O BLEEDING Status: Chronic Current Visit: Yes (10) Age related cataract SNOMED Code(s): 93310391 ICD Code: H25.9 - UNSPECIFIED AGE-RELATED CATARACT Status: Chronic Current Visit: Yes (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, unspecified SNOMED Code(s): 0022826 ICD Code: F81.9 - DEVELOPMENTAL DISORDER OF SCHOLASTIC SKILLS, UNSPECIFIED Status: Chronic Current Visit: Yes (12) CKD (chronic kidney disease) SNOMED Code(s): 792059083 ICD Code: N18.9 - CHRONIC KIDNEY DISEASE, UNSPECIFIED Status: Chronic Current Visit: Yes (13) Vitamin B12 deficiency SNOMED Code(s): 694172490 ICD Code: E53.8 - DEFICIENCY OF OTHER SPECIFIED B GROUP VITAMINS Status: Chronic Current Visit: Yes (14) GERD (gastroesophageal reflux disease) SNOMED Code(s): 889047004 ICD Code: K21.9 - GASTRO-ESOPHAGEAL REFLUX DISEASE WITHOUT ESOPHAGITIS Status: Chronic Current Visit: Yes Problem List Initiated/Reviewed/Updated: Yes Orders Last 24hrs: Active Orders 24 hr Category Date Time Status Patient Status [ADT] Routine ADT 02/07/20 10:31 Active Accu Check [Blood Glucose Check, Bedside] [RC] Care 02/07/20 10:34 Active QIDACANDBED Height and Weight [RC] 0600 Care 02/06/20 19:27 Active Oxygen Therapy [RC] PRN Care 02/06/20 19:27 Active RT Aerosol Therapy [RC] ASDIRECTED Care 02/06/20 19:30 Active Up With Assistance [RC] ASDIRECTED Care 02/06/20 19:27 Active VTE/DVT Education [RC] Per Unit Routine Care 02/06/20 19:27 Active Vital Signs [RC] Q8H Care 02/06/20 19:27 Active OT Evaluation and Treatment [CONS] Routine Cons 02/06/20 19:27 Active PT Evaluation and Treatment [CONS] Routine Cons 02/06/20 19:27 Active BASIC METABOLIC PANEL,BMP [CHEM] Routine Lab 02/08/20 06:00 Ordered CBC WITH AUTO DIFF [HEME] Routine Lab 02/08/20 06:00 Ordered CULTURE BLOOD [BC] Urgent Lab 02/06/20 16:00 Received CULTURE BLOOD [BC] Urgent Lab 02/06/20 16:05 Received LACTIC ACID [CHEM] Routine Lab 02/08/20 06:00 Ordered Acetaminophen [Tylenol Extra Strength] Med 02/07/20 11:00 Active 500 mg PO Q6H Albuterol [Proventil Neb Soln] Med 02/06/20 19:27 Active 2.5 mg NEB Q2H PRN Aspirin [Halfprin] Med 02/07/20 11:15 Active 81 mg PO DAILY Glimepiride [Amaryl] Med 02/07/20 11:15 Active 2 mg PO DAILY Ibuprofen [Motrin] Med 02/07/20 11:00 Active 200 mg PO Q6H Insulin Glarg,Human.Rec.Analog [LantUS Solostar] Med 02/07/20 21:00 Active 8 units SUBCUT BEDTIME Melatonin Med 02/07/20 21:00 Active 6 mg PO BEDTIME Pantoprazole [ProTONIX] Med 02/07/20 11:15 Active 40 mg PO ACBREAKFAST Sodium Chloride 0.9% [Saline Flush] Med 02/06/20 15:31 Active 10 ml FLUSH ASDIRECTED PRN lisinopriL [Prinivil] Med 02/07/20 11:15 Active 10 mg PO DAILY Blood Culture x2 Reflex Set [OM.PC] Urgent Oth 02/06/20 15:30 Ordered Saline Lock Insert [OM.PC] Routine Oth 02/06/20 15:31 Ordered Resuscitation Status Routine Resus Stat 02/06/20 21:18 Ordered EKG 12 Lead [EK] Stat Ther 02/06/20 15:30 Ordered Medication Orders Acetaminophen (Tylenol Extra Strength) 500 mg PO Q6H [facility] Last Admin: 02/07/20 11:33 Dose: 500 mg Documented by: KAYLYN Albuterol (Proventil Neb Soln) 2.5 mg NEB Q2H PRN PRN Reason: Shortness Of Breath/wheezing Aspirin (Halfprin) 81 mg PO DAILY [facility]IAH Last Admin: 02/07/20 11:33 Dose: 81 mg Documented by: KAYLYN Glimepiride (Amaryl) 2 mg PO DAILY [facility] Last Admin: 02/07/20 11:33 Dose: 2 mg Documented by: KAYLNY Ibuprofen (Motrin) 200 mg PO Q6H [facility] Last Admin: 02/07/20 11:33 Dose: 200 mg Documented by: KAYLYN Insulin Glargine (Lantus Solostar) 8 units SUBCUT BEDTIME [facility] Lisinopril (Prinivil) 10 mg PO DAILY [facility] Last Admin: 02/07/20 11:33 Dose: 10 mg Documented by: KAYLYN Melatonin (Melatonin) 6 mg PO BEDTIME [facility] Pantoprazole Sodium (Protonix) 40 mg PO ACBREAKFAST [facility] Last Admin: 02/07/20 11:33 Dose: 40 mg Documented by: KAYLYN Sodium Chloride (Saline Flush) 10 ml FLUSH ASDIRECTED PRN PRN Reason: Keep Vein Open Last Admin: 02/07/20 07:57 Dose: 10 ml Documented by: Admin: 02/06/20 19:00 Dose: 10 ml Documented by: Admin: 02/06/20 17:26 Dose: 10 ml Documented by: JENNY Assessment/Plan Comment:: 1. Admit for inpatient status for weakness, fall, left hip pain, lactic acidosis. 2. Repeat CBC, BMP, lactic acid tomorrow, possibly due to metformin as no source of infection evident. 2. Discontinue Janumet, continue Januvia, Amaryl and Lantus, Accuchecks qidac & meals. 3. Consistent carb diet. 4. Up with assistance and chair. 5. PT/OT evaluate and treat to assess on Sunday. 6. Tylenol 500 mg q6h with Ibuprofen 200 mg q6h for left hip pain, no fractures on CT pelvis. 7. No acute features of CT head, spine or chest x-ray. 8. DNR/DNI. 9. Adjust treatments as necessary. - Mortality Measure Prognosis:: Good
[2020-02-07] MEDS ORDERED: Insulin Glargine,Human Rec. Analog 100 Units/ML 3 ML Pen SUBCUT ONE (20:45)
[2020-02-07] MEDS: Melatonin 3 MG Tab PO SCH (20:46)
[2020-02-07] MEDS ORDERED: Insulin Glargine,Human Rec. Analog 100 Units/ML 3 ML Pen SUBCUT SCH (21:00)
[2020-02-08] MEDS: Ibuprofen 200 MG Tab PO SCH ×4 (05:18→22:10)
[2020-02-08] MEDS: Acetaminophen 500 MG Tab PO SCH ×4 (05:20→22:10)
[2020-02-08] MEDS: Pantoprazole 40 MG Tab.CR PO SCH (07:10)
[2020-02-08] MEDS: Glimepiride 2 MG Tab PO SCH (08:57)
[2020-02-08] MEDS: Lisinopril 10 MG Tab PO SCH (08:57)
[2020-02-08] MEDS: Aspirin 81 MG Tab.EC PO SCH (08:57)
--- NOTE | 2020-02-08 11:23 | PCM.PN ---
- General Info Date of Service: 02/08/20 Admission Dx/Problem (Free Text): Hailey is doing better this morning, slept well overnight, not as agitated per nursing. Tylenol and Motrin combination is controlling her pain. She denies any hip pain, shortness of breath, coughing this morning. Had bowel movement yesterday. Weaned off oxygen today. She ate her breakfast fine this morning. PT/OT to see her tomorrow. Functional Status: Reports: Pain Controlled, Tolerating Diet, Urinating. Denies: New Symptoms - Patient Data Vitals - Most Recent: Last Vital Signs Temp 98.2 F 02/08/20 08:00 Pulse 68 02/08/20 08:00 Resp 16 02/08/20 08:00 BP 135/70 02/08/20 08:57 Pulse Ox 98 02/08/20 08:00 Weight - Most Recent: 131 lb 11.2 oz I&O - Last 24 Hours: Intake & Output 02/07/20 02/08/20 02/08/20 22:59 06:59 14:59 Intake Total 25 Balance 25 Lab Results Last 24 Hours: Laboratory Results - last 24 hr 02/07/20 02/07/20 02/07/20 Range/Units 11:29 18:09 18:49 WBC (4.5-12.0) X10-3/uL RBC (3.23-5.20) x10(6)uL Hgb (11.5-15.5) g/dL Hct (30.0-51.3) % MCV (80-96) fL MCH (27.7-33.6) pg MCHC (32.2-35.4) g/dL RDW (11.5-15.5) % Plt Count (125-369) X10(3)uL MPV (7.4-10.4) fL Neut % (Auto) (46-82) % Lymph % (Auto) (13-37) % [place] % (Auto) (4-12) % Eos % (Auto) (1.0-5.0) % Baso % (Auto) (0-2) % Neut # (Auto) (1.6-8.3) # Lymph # (Auto) (0.6-5.0) # [place] # (Auto) (0.0-1.3) # Eos # (Auto) (0.0-0.8) # Baso # (Auto) (0.0-0.2) # Sodium (135-145) mmol/L Potassium (3.5-5.3) mmol/L Chloride (100-110) mmol/L Carbon Dioxide (21-32) mmol/L BUN (7-18) mg/dL Creatinine (0.55-1.02) mg/dL Est Cr Clr Drug Dosing mL/min Estimated GFR (MDRD) (>60) BUN/Creatinine Ratio (9-20) Glucose (80-116) mg/dL POC Glucose 154 H 68 L D 197 H D (80-116) mg/dL Lactic Acid (0.4-2.0) mmol/L Calcium (8.6-10.2) mg/dL 02/07/20 02/08/20 02/08/20 Range/Units 20:43 06:35 06:35 WBC 8.1 (4.5-12.0) X10-3/uL RBC 3.30 (3.23-5.20) x10(6)uL Hgb 9.9 L (11.5-15.5) g/dL Hct 30.8 (30.0-51.3) % MCV 93.4 (80-96) fL MCH 30.0 (27.7-33.6) pg MCHC 32.1 L (32.2-35.4) g/dL RDW 13.4 (11.5-15.5) % Plt Count 431 H (125-369) X10(3)uL MPV 7.7 (7.4-10.4) fL Neut % (Auto) 75.0 (46-82) % Lymph % (Auto) 12.0 L (13-37) % [place] % (Auto) 9.9 (4-12) % Eos % (Auto) 3 (1.0-5.0) % Baso % (Auto) 0 (0-2) % Neut # (Auto) 6.1 (1.6-8.3) # Lymph # (Auto) 1.0 (0.6-5.0) # [place] # (Auto) 0.8 (0.0-1.3) # Eos # (Auto) 0.2 (0.0-0.8) # Baso # (Auto) 0.0 (0.0-0.2) # Sodium 143 (135-145) mmol/L Potassium 4.5 (3.5-5.3) mmol/L Chloride 110 (100-110) mmol/L Carbon Dioxide 24 (21-32) mmol/L BUN 33 H (7-18) mg/dL Creatinine 0.9 (0.55-1.02) mg/dL Est Cr Clr Drug Dosing 37.62 mL/min Estimated GFR (MDRD) > 60 (>60) BUN/Creatinine Ratio 36.7 H (9-20) Glucose 67 L (80-116) mg/dL POC Glucose 267 H (80-116) mg/dL Lactic Acid (0.4-2.0) mmol/L Calcium 8.4 L (8.6-10.2) mg/dL 02/08/20 Range/Units 06:35 WBC (4.5-12.0) X10-3/uL RBC (3.23-5.20) x10(6)uL Hgb (11.5-15.5) g/dL Hct (30.0-51.3) % MCV (80-96) fL MCH (27.7-33.6) pg MCHC (32.2-35.4) g/dL RDW (11.5-15.5) % Plt Count (125-369) X10(3)uL MPV (7.4-10.4) fL Neut % (Auto) (46-82) % Lymph % (Auto) (13-37) % [place] % (Auto) (4-12) % Eos % (Auto) (1.0-5.0) % Baso % (Auto) (0-2) % Neut # (Auto) (1.6-8.3) # Lymph # (Auto) (0.6-5.0) # [place] # (Auto) (0.0-1.3) # Eos # (Auto) (0.0-0.8) # Baso # (Auto) (0.0-0.2) # Sodium (135-145) mmol/L Potassium (3.5-5.3) mmol/L Chloride (100-110) mmol/L Carbon Dioxide (21-32) mmol/L BUN (7-18) mg/dL Creatinine (0.55-1.02) mg/dL Est Cr Clr Drug Dosing mL/min Estimated GFR (MDRD) (>60) BUN/Creatinine Ratio (9-20) Glucose (80-116) mg/dL POC Glucose (80-116) mg/dL Lactic Acid 0.9 (0.4-2.0) mmol/L Calcium (8.6-10.2) mg/dL Steffen Results Last 24 Hours: Microbiology 02/06/20 16:00 Aerobic Blood Culture - Preliminary Blood - Venous NO GROWTH AFTER 1 DAY Anaerobic Blood Culture - Preliminary NO GROWTH AFTER 1 DAY 02/06/20 16:05 Aerobic Blood Culture - Preliminary Blood - Venous - Lab Draw NO GROWTH AFTER 1 DAY Anaerobic Blood Culture - Preliminary NO GROWTH AFTER 1 DAY Med Orders - Current: Current Medications Acetaminophen (Tylenol Extra Strength) 500 mg PO Q6H [facility] Last Admin: 02/08/20 11:09 Dose: 500 mg Documented by: Albuterol (Proventil Neb Soln) 2.5 mg NEB Q2H PRN PRN Reason: Shortness Of Breath/wheezing Aspirin (Halfprin) 81 mg PO DAILY [facility] Last Admin: 02/08/20 08:57 Dose: 81 mg Documented by: Glimepiride (Amaryl) 2 mg PO DAILY [facility] Last Admin: 02/08/20 08:57 Dose: 2 mg Documented by: Ibuprofen (Motrin) 200 mg PO Q6H [facility] Last Admin: 02/08/20 11:09 Dose: 200 mg Documented by: Insulin Glargine (Lantus Solostar) 6 units SUBCUT BEDTIME [facility] Lisinopril (Prinivil) 10 mg PO DAILY [facility] Last Admin: 02/08/20 08:57 Dose: 10 mg Documented by: Melatonin (Melatonin) 6 mg PO BEDTIME [facility] Last Admin: 02/07/20 20:46 Dose: 6 mg Documented by: Pantoprazole Sodium (Protonix) 40 mg PO ACBREAKFAST [facility] Last Admin: 02/08/20 07:10 Dose: 40 mg Documented by: Sodium Chloride (Saline Flush) 10 ml FLUSH ASDIRECTED PRN PRN Reason: Keep Vein Open Last Admin: 02/07/20 07:57 Dose: 10 ml Documented by: Discontinued Medications Acetaminophen (Tylenol Arthritis Pain) 650 mg PO BID [facility] Last Admin: 02/07/20 11:20 Dose: Not Given Documented by: Acetaminophen (Tylenol) 650 mg PO Q4H PRN PRN Reason: Pain/Fever Albuterol (Proventil Neb Soln) 2.5 mg NEB ONETIME ONE Stop: 02/06/20 18:52 Last Admin: 02/06/20 18:56 Dose: 2.5 mg Documented by: Aspirin (Halfprin) 81 mg PO DAILY [facility] Last Admin: 02/07/20 11:20 Dose: Not Given Documented by: Furosemide (Lasix) 20 mg IVPUSH ONETIME ONE Stop: 02/06/20 18:52 Last Admin: 02/06/20 19:00 Dose: 20 mg Documented by: Glimepiride (Amaryl) 2 mg PO DAILY [facility] Last Admin: 02/07/20 11:19 Dose: Not Given Documented by: Sodium Chloride (Normal Saline) 500 mls @ 500 mls/hr IV .BOLUS ONE Stop: 02/06/20 16:30 Last Admin: 02/06/20 16:10 Dose: 500 mls/hr Documented by: Sodium Chloride (Normal Saline) 1,000 mls @ 999 mls/hr IV .BOLUS ONE Stop: 02/06/20 17:40 Last Admin: 02/06/20 17:26 Dose: 999 mls/hr Documented by: Piperacillin Sod/Tazobactam (Sod 3.375 gm/ Sodium Chloride) 50 mls @ 100 mls/hr IV .ONCE ONE Stop: 02/06/20 17:12 Last Admin: 02/06/20 16:54 Dose: 100 mls/hr Documented by: Vancomycin HCl 1.25 gm/ Sodium (Chloride) 250 mls @ 167 mls/hr IV .ONCE ONE Stop: 02/06/20 18:13 Last Admin: 02/06/20 17:28 Dose: 167 mls/hr Documented by: Insulin Glargine (Lantus Solostar) 8 units SUBCUT BEDTIME [facility] Last Admin: 02/07/20 20:48 Dose: 8 units Documented by: Ketorolac Tromethamine (Toradol) 15 mg IVPUSH ONETIME ONE Stop: 02/06/20 17:18 Last Admin: 02/06/20 17:44 Dose: 15 mg Documented by: Lisinopril (Prinivil) 10 mg PO DAILY [facility] Last Admin: 02/07/20 11:20 Dose: Not Given Documented by: Melatonin (Melatonin) 6 mg PO DAILY [facility] Last Admin: 02/07/20 11:20 Dose: Not Given Documented by: Metformin HCl (Glucophage) 1,000 mg PO ONETIME ONE Stop: 02/06/20 22:25 Last Admin: 02/06/20 22:48 Dose: 1,000 mg Documented by: Non-Formulary Medication (Omeprazole [Omeprazole]) 20 mg PO DAILY [facility] Last Admin: 02/07/20 11:20 Dose: Not Given Documented by: Non-Formulary Medication (Sitagliptin Phos/Metformin Hcl [Janumet 50-1,000 Mg]) 1 tab PO BID [facility] Last Admin: 02/07/20 11:21 Dose: Not Given Documented by: - Exam General: Alert, Oriented (person), Cooperative, No Acute Distress Lungs: Clear to Auscultation, Normal Respiratory Effort Cardiovascular: Regular Rate, Regular Rhythm GI/Abdominal Exam: Normal Bowel Sounds, Soft, Non-Tender, No Distention Sepsis Event Note - Evaluation Sepsis Screening Result: No Definite Risk - Focused Exam Vital Signs: Vital Signs Temp Pulse Resp BP BP Pulse Ox 02/08/20 08:57 135/70 02/08/20 08:00 98.2 F 68 16 135/70 98 02/08/20 07:45 97.3 F 68 22 H 156/88 H 97 02/08/20 04:00 98.2 F 68 16 151/83 H 95 Date Exam was Performed: 02/08/20 Time Exam was Performed: 11:18 - Problem List & Annotations (1) Elevated lactic acid level SNOMED Code(s): 6968788 Code(s): R79.89 - OTHER SPECIFIED ABNORMAL FINDINGS OF BLOOD CHEMISTRY Status: Resolved Current Visit: Yes (2) Left hip pain SNOMED Code(s): 46582703 Code(s): M25.552 - PAIN IN LEFT HIP Status: Acute Current Visit: Yes (3) Weakness SNOMED Code(s): 42329331 Code(s): R53.1 - WEAKNESS Status: Acute Current Visit: Yes (4) Fall SNOMED Code(s): 1487435, 832783491 Code(s): W19.XXXA - UNSPECIFIED FALL, INITIAL ENCOUNTER Status: Acute Current Visit: Yes (5) Diabetes SNOMED Code(s): 71901042 Code(s): E11.9 - TYPE 2 DIABETES MELLITUS WITHOUT COMPLICATIONS Status: Chronic Current Visit: Yes Qualifiers: Diabetes mellitus type: type 2 Diabetes mellitus fdc insulin use: with salvage determiner use (6) Hyperlipidemia SNOMED Code(s): 58232614 Code(s): E78.5 - HYPERLIPIDEMIA, UNSPECIFIED Status: Chronic Current Visit: Yes (7) Insomnia SNOMED Code(s): 349030549 Code(s): G47.00 - INSOMNIA, UNSPECIFIED Status: Chronic Current Visit: Yes (8) Hypertension SNOMED Code(s): 54517566 Code(s): I10 - ESSENTIAL (PRIMARY) HYPERTENSION Status: Chronic Current Visit: Yes (9) Diverticula of colon SNOMED Code(s): 093213921, 970978486 Code(s): K57.30 - DVRTCLOS OF LG INT W/O PERFORATION OR ABSCESS W/O BLEEDING Status: Chronic Current Visit: Yes (10) Age related cataract SNOMED Code(s): 96325044 Code(s): H25.9 - UNSPECIFIED AGE-RELATED CATARACT Status: Chronic Current Visit: Yes (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, unspecified SNOMED Code(s): 4687003 Code(s): F81.9 - DEVELOPMENTAL DISORDER OF SCHOLASTIC SKILLS, UNSPECIFIED Status: Chronic Current Visit: Yes (12) CKD (chronic kidney disease) SNOMED Code(s): 783459736 Code(s): N18.9 - CHRONIC KIDNEY DISEASE, UNSPECIFIED Status: Chronic Current Visit: Yes (13) Vitamin B12 deficiency SNOMED Code(s): 909785820 Code(s): E53.8 - DEFICIENCY OF OTHER SPECIFIED B GROUP VITAMINS Status: Chronic Current Visit: Yes (14) GERD (gastroesophageal reflux disease) SNOMED Code(s): 240419220 Code(s): K21.9 - GASTRO-ESOPHAGEAL REFLUX DISEASE WITHOUT ESOPHAGITIS Status: Chronic Current Visit: Yes - Problem List Review Problem List Initiated/Reviewed/Updated: Yes - My Orders Last 24 Hours: My Active Orders 02/07/20 10:31 Patient Status [ADT] Routine 02/07/20 10:34 Accu Check [Blood Glucose Check, Bedside] [RC] QIDACANDBED 02/07/20 11:00 Acetaminophen [Tylenol Extra Strength] 500 mg PO Q6H Ibuprofen [Motrin] 200 mg PO Q6H 02/07/20 16:06 Cooling Warming Measures [RC] ASDIRECTED Heat Therapy [OM.PC] Routine 02/07/20 21:00 Melatonin 6 mg PO BEDTIME 02/08/20 21:00 Insulin Glarg,Human.Rec.Analog [LantUS Solostar] 6 units SUBCUT BEDTIME - Plan Plan:: 1. WBC 8.1, Lactic 0.9, BMP normal. Afebrile, no signs of infection, most likely secondary to her metformin. 2. DM: had low BS this morning, on , Amaryl and Lantus, decrease Lantus to 6 units at bedtime. Continue to monitor and adjust as needed. 3. Consistent carb diet. 4. Up with assistance and chair. 5. PT/OT evaluate and treat to assess on Sunday. 6. Tylenol 500 mg q6h with Ibuprofen 200 mg q6h for left hip pain, no fractures on CT pelvis.
[2020-02-08] MEDS: Sodium Chloride 0.9% 10 ML Syringe FLUSH PRN (16:14)
[2020-02-08] MEDS: Insulin Glargine,Human Rec. Analog 100 Units/ML 3 ML Pen SUBCUT SCH (21:01)
[2020-02-08] MEDS: Melatonin 3 MG Tab PO SCH (21:01)
[2020-02-09] MEDS: Acetaminophen 500 MG Tab PO SCH ×4 (05:42→22:00)
[2020-02-09] MEDS: Ibuprofen 200 MG Tab PO SCH ×4 (05:43→21:59)
[2020-02-09] MEDS: Pantoprazole 40 MG Tab.CR PO SCH (06:36)
[2020-02-09] MEDS: Glimepiride 2 MG Tab PO SCH (09:09)
[2020-02-09] MEDS: Aspirin 81 MG Tab.EC PO SCH (09:09)
[2020-02-09] MEDS: Lisinopril 10 MG Tab PO SCH (09:09)
[2020-02-09] MEDS ORDERED: Empagliflozin 25 MG Tab PO ONE (11:50)
[2020-02-09] MEDS ORDERED: Insulin Lispro 100 Unit/ML 3 ML KwikPen SUBCUT ONE (11:56)
[2020-02-09] MEDS: Insulin Lispro 100 Unit/ML 3 ML KwikPen SUBCUT SCH ×2 (12:04→17:22)
--- NOTE | 2020-02-09 16:18 | PCM.PN ---
- General Info Date of Service: 02/09/20 Subjective Update: Hailey is feeling good this morning. Denies any left hip pain, slept well. Fed herself breakfast this morning. Showered with assistance this morning. No fever, shortness of breath, chest pain. - Patient Data Vitals - Most Recent: Last Vital Signs Temp 97.8 F 02/09/20 08:00 Pulse 69 02/09/20 08:00 Resp 20 02/09/20 08:00 BP 148/90 H 02/09/20 09:09 Pulse Ox 93 L 02/09/20 08:00 Weight - Most Recent: 134 lb 2 oz Lab Results Last 24 Hours: Laboratory Results - last 24 hr 02/08/20 02/08/20 02/08/20 Range/Units 11:39 16:17 20:57 WBC (4.5-12.0) X10-3/uL RBC (3.23-5.20) x10(6)uL Hgb (11.5-15.5) g/dL Hct (30.0-51.3) % MCV (80-96) fL MCH (27.7-33.6) pg MCHC (32.2-35.4) g/dL RDW (11.5-15.5) % Plt Count (125-369) X10(3)uL MPV (7.4-10.4) fL Neut % (Auto) (46-82) % Lymph % (Auto) (13-37) % [place] % (Auto) (4-12) % Eos % (Auto) (1.0-5.0) % Baso % (Auto) (0-2) % Neut # (Auto) (1.6-8.3) # Lymph # (Auto) (0.6-5.0) # [place] # (Auto) (0.0-1.3) # Eos # (Auto) (0.0-0.8) # Baso # (Auto) (0.0-0.2) # POC Glucose 232 H 293 H 257 H (80-116) mg/dL C-Reactive Protein (0.5-0.9) mg/dL 02/09/20 02/09/20 02/09/20 Range/Units 06:14 06:45 06:45 WBC 9.6 (4.5-12.0) X10-3/uL RBC 3.36 (3.23-5.20) x10(6)uL Hgb 10.3 L (11.5-15.5) g/dL Hct 31.1 (30.0-51.3) % MCV 92.4 (80-96) fL MCH 30.7 (27.7-33.6) pg MCHC 33.2 (32.2-35.4) g/dL RDW 13.3 (11.5-15.5) % Plt Count 418 H (125-369) X10(3)uL MPV 7.5 (7.4-10.4) fL Neut % (Auto) 75.8 (46-82) % Lymph % (Auto) 13.1 (13-37) % [place] % (Auto) 8.4 (4-12) % Eos % (Auto) 3 (1.0-5.0) % Baso % (Auto) 0 (0-2) % Neut # (Auto) 7.3 (1.6-8.3) # Lymph # (Auto) 1.3 (0.6-5.0) # [place] # (Auto) 0.8 (0.0-1.3) # Eos # (Auto) 0.2 (0.0-0.8) # Baso # (Auto) 0.0 (0.0-0.2) # POC Glucose 128 H D (80-116) mg/dL C-Reactive Protein 0.7 (0.5-0.9) mg/dL 02/09/20 Range/Units 11:37 WBC (4.5-12.0) X10-3/uL RBC (3.23-5.20) x10(6)uL Hgb (11.5-15.5) g/dL Hct (30.0-51.3) % MCV (80-96) fL MCH (27.7-33.6) pg MCHC (32.2-35.4) g/dL RDW (11.5-15.5) % Plt Count (125-369) X10(3)uL MPV (7.4-10.4) fL Neut % (Auto) (46-82) % Lymph % (Auto) (13-37) % [place] % (Auto) (4-12) % Eos % (Auto) (1.0-5.0) % Baso % (Auto) (0-2) % Neut # (Auto) (1.6-8.3) # Lymph # (Auto) (0.6-5.0) # [place] # (Auto) (0.0-1.3) # Eos # (Auto) (0.0-0.8) # Baso # (Auto) (0.0-0.2) # POC Glucose 239 H D (80-116) mg/dL C-Reactive Protein (0.5-0.9) mg/dL Steffen Results Last 24 Hours: Microbiology 02/06/20 16:05 Aerobic Blood Culture - Preliminary Blood - Venous - Lab Draw NO GROWTH AFTER 2 DAYS Anaerobic Blood Culture - Preliminary NO GROWTH AFTER 2 DAYS 02/06/20 16:00 Aerobic Blood Culture - Preliminary Blood - Venous NO GROWTH AFTER 2 DAYS Anaerobic Blood Culture - Preliminary NO GROWTH AFTER 2 DAYS Med Orders - Current: Current Medications Acetaminophen (Tylenol Extra Strength) 500 mg PO Q6H [facility] Last Admin: 02/09/20 11:19 Dose: 500 mg Documented by: Albuterol (Proventil Neb Soln) 2.5 mg NEB Q2H PRN PRN Reason: Shortness Of Breath/wheezing Aspirin (Halfprin) 81 mg PO DAILY [facility] Last Admin: 02/09/20 09:09 Dose: 81 mg Documented by: Ibuprofen (Motrin) 200 mg PO Q6H [facility] Last Admin: 02/09/20 11:19 Dose: 200 mg Documented by: Insulin Glargine (Lantus Solostar) 6 units SUBCUT BEDTIME [facility] Last Admin: 02/08/20 21:01 Dose: 6 units Documented by: Insulin Human Lispro (Humalog) 0 unit SUBCUT TIDMEALS [facility]; Protocol Last Admin: 02/09/20 12:04 Dose: 2 unit Documented by: Lisinopril (Prinivil) 10 mg PO DAILY [facility] Last Admin: 02/09/20 09:09 Dose: 10 mg Documented by: Melatonin (Melatonin) 6 mg PO BEDTIME [facility] Last Admin: 02/08/20 21:01 Dose: 6 mg Documented by: Pantoprazole Sodium (Protonix) 40 mg PO ACBREAKFAST [facility] Last Admin: 02/09/20 06:36 Dose: 40 mg Documented by: Sitagliptin Phosphate (Januvia) 50 mg PO DAILY [facility] Last Admin: 02/09/20 12:57 Dose: 50 mg Documented by: Sodium Chloride (Saline Flush) 10 ml FLUSH ASDIRECTED PRN PRN Reason: Keep Vein Open Last Admin: 02/08/20 16:14 Dose: 10 ml Documented by: Discontinued Medications Acetaminophen (Tylenol Arthritis Pain) 650 mg PO BID [facility] Last Admin: 02/07/20 11:20 Dose: Not Given Documented by: Acetaminophen (Tylenol) 650 mg PO Q4H PRN PRN Reason: Pain/Fever Albuterol (Proventil Neb Soln) 2.5 mg NEB ONETIME ONE Stop: 02/06/20 18:52 Last Admin: 02/06/20 18:56 Dose: 2.5 mg Documented by: Aspirin (Halfprin) 81 mg PO DAILY [facility] Last Admin: 02/07/20 11:20 Dose: Not Given Documented by: Furosemide (Lasix) 20 mg IVPUSH ONETIME ONE Stop: 02/06/20 18:52 Last Admin: 02/06/20 19:00 Dose: 20 mg Documented by: Glimepiride (Amaryl) 2 mg PO DAILY [facility] Last Admin: 02/07/20 11:19 Dose: Not Given Documented by: Glimepiride (Amaryl) 2 mg PO DAILY [facility] Last Admin: 02/09/20 09:09 Dose: 2 mg Documented by: Sodium Chloride (Normal Saline) 500 mls @ 500 mls/hr IV .BOLUS ONE Stop: 02/06/20 16:30 Last Admin: 02/06/20 16:10 Dose: 500 mls/hr Documented by: Sodium Chloride (Normal Saline) 1,000 mls @ 999 mls/hr IV .BOLUS ONE Stop: 02/06/20 17:40 Last Admin: 02/06/20 17:26 Dose: 999 mls/hr Documented by: Piperacillin Sod/Tazobactam (Sod 3.375 gm/ Sodium Chloride) 50 mls @ 100 mls/hr IV .ONCE ONE Stop: 02/06/20 17:12 Last Admin: 02/06/20 16:54 Dose: 100 mls/hr Documented by: Vancomycin HCl 1.25 gm/ Sodium (Chloride) 250 mls @ 167 mls/hr IV .ONCE ONE Stop: 02/06/20 18:13 Last Admin: 02/06/20 17:28 Dose: 167 mls/hr Documented by: Insulin Glargine (Lantus Solostar) 8 units SUBCUT BEDTIME [facility] Last Admin: 02/07/20 20:48 Dose: 8 units Documented by: Ketorolac Tromethamine (Toradol) 15 mg IVPUSH ONETIME ONE Stop: 02/06/20 17:18 Last Admin: 02/06/20 17:44 Dose: 15 mg Documented by: Lisinopril (Prinivil) 10 mg PO DAILY [facility] Last Admin: 02/07/20 11:20 Dose: Not Given Documented by: Melatonin (Melatonin) 6 mg PO DAILY [facility] Last Admin: 02/07/20 11:20 Dose: Not Given Documented by: Metformin HCl (Glucophage) 1,000 mg PO ONETIME ONE Stop: 02/06/20 22:25 Last Admin: 02/06/20 22:48 Dose: 1,000 mg Documented by: Non-Formulary Medication (Omeprazole [Omeprazole]) 20 mg PO DAILY [facility] Last Admin: 02/07/20 11:20 Dose: Not Given Documented by: Non-Formulary Medication (Sitagliptin Phos/Metformin Hcl [Janumet 50-1,000 Mg]) 1 tab PO BID [facility] Last Admin: 02/07/20 11:21 Dose: Not Given Documented by: - Exam General: Alert, Oriented (person, developmental delay, ), Cooperative, No Acute Distress Lungs: Clear to Auscultation Cardiovascular: Regular Rate, Regular Rhythm GI/Abdominal Exam: Normal Bowel Sounds, Soft, Non-Tender, No Distention Extremities: No Pedal Edema. No: Joint Swelling, Leg Pain Peripheral Pulses: 2+: Radial (L), Radial (R) Sepsis Event Note - Evaluation Sepsis Screening Result: No Definite Risk - Focused Exam Vital Signs: Vital Signs Temp Pulse Resp BP BP Pulse Ox 02/09/20 09:09 148/90 H 02/09/20 08:00 97.8 F 69 20 148/90 H 93 L Date Exam was Performed: 02/09/20 Time Exam was Performed: 16:00 - Problem List & Annotations (1) Elevated lactic acid level SNOMED Code(s): 9527273 Code(s): R79.89 - OTHER SPECIFIED ABNORMAL FINDINGS OF BLOOD CHEMISTRY Status: Resolved Current Visit: Yes (2) Left hip pain SNOMED Code(s): 90467567 Code(s): M25.552 - PAIN IN LEFT HIP Status: Acute Current Visit: Yes (3) Weakness SNOMED Code(s): 23320244 Code(s): R53.1 - WEAKNESS Status: Acute Current Visit: Yes (4) Fall SNOMED Code(s): 2243377, 360419570 Code(s): W19.XXXA - UNSPECIFIED FALL, INITIAL ENCOUNTER Status: Acute Current Visit: Yes (5) Diabetes SNOMED Code(s): 10869216 Code(s): E11.9 - TYPE 2 DIABETES MELLITUS WITHOUT COMPLICATIONS Status: Chronic Current Visit: Yes Qualifiers: Diabetes mellitus type: type 2 Diabetes mellitus fdc insulin use: with fdc use (6) Hyperlipidemia SNOMED Code(s): 15288746 Code(s): E78.5 - HYPERLIPIDEMIA, UNSPECIFIED Status: Chronic Current Visit: Yes (7) Insomnia SNOMED Code(s): 894087947 Code(s): G47.00 - INSOMNIA, UNSPECIFIED Status: Chronic Current Visit: Yes (8) Hypertension SNOMED Code(s): 55632629 Code(s): I10 - ESSENTIAL (PRIMARY) HYPERTENSION Status: Chronic Current Visit: Yes (9) Diverticula of colon SNOMED Code(s): 347762070, 269474328 Code(s): K57.30 - DVRTCLOS OF LG INT W/O PERFORATION OR ABSCESS W/O BLEEDING Status: Chronic Current Visit: Yes (10) Age related cataract SNOMED Code(s): 98723917 Code(s): H25.9 - UNSPECIFIED AGE-RELATED CATARACT Status: Chronic Current Visit: Yes (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, unspecified SNOMED Code(s): 7580862 Code(s): F81.9 - DEVELOPMENTAL DISORDER OF SCHOLASTIC SKILLS, UNSPECIFIED Status: Chronic Current Visit: Yes Annotation/Comment:: congenital (12) CKD (chronic kidney disease) SNOMED Code(s): 052089412 Code(s): N18.9 - CHRONIC KIDNEY DISEASE, UNSPECIFIED Status: Chronic Current Visit: Yes (13) Vitamin B12 deficiency SNOMED Code(s): 155475487 Code(s): E53.8 - DEFICIENCY OF OTHER SPECIFIED B GROUP VITAMINS Status: Chronic Current Visit: Yes (14) GERD (gastroesophageal reflux disease) SNOMED Code(s): 629051961 Code(s): K21.9 - GASTRO-ESOPHAGEAL REFLUX DISEASE WITHOUT ESOPHAGITIS Status: Chronic Current Visit: Yes - Problem List Review Problem List Initiated/Reviewed/Updated: Yes - My Orders Last 24 Hours: My Active Orders 02/08/20 21:00 Insulin Glarg,Human.Rec.Analog [LantUS Solostar] 6 units SUBCUT BEDTIME 02/09/20 12:00 Insulin Lispro [HumaLOG] See Protocol SUBCUT TIDMEALS 02/09/20 13:00 SitaGLIPtin [Januvia] 50 mg PO DAILY - Plan Plan:: 1. Lactic acidosis, resolved. WBC 9.6, Lactic 0.9, CRP 0.7. Afebrile, no signs of infection, most likely secondary to her metformin. 2. DM: had BS 126 this morning, Amaryl and Lantus, decreased Lantus to 6 units at bedtime yesterday. BS during day in 200s. Add low dose sliding scale tid meals and changed Januvia 50 mg daily to adjust for her kidney function. Discontinue Amaryl. Continue to monitor and adjust as needed. 3. Consistent carb diet. 4. Up with assistance and chair. 5. PT/OT evaluate and treat, PT recommended services when she go back to [facility], OT had not seen at time of note. 6. Tylenol 500 mg q6h with Ibuprofen 200 mg q6h for left hip pain, for another [address] Darling can adjust as needed.
[2020-02-09] MEDS: Melatonin 3 MG Tab PO SCH (20:42)
[2020-02-09] MEDS: Insulin Glargine,Human Rec. Analog 100 Units/ML 3 ML Pen SUBCUT SCH (20:44)
[2020-02-10] MEDS: Ibuprofen 200 MG Tab PO SCH (05:23)
[2020-02-10] MEDS: Acetaminophen 500 MG Tab PO SCH (05:24)
[2020-02-10] MEDS: Pantoprazole 40 MG Tab.CR PO SCH (07:19)
[2020-02-10] MEDS: Aspirin 81 MG Tab.EC PO SCH (08:03)
[2020-02-10] MEDS: Insulin Lispro 100 Unit/ML 3 ML KwikPen SUBCUT SCH (08:03)
[2020-02-10] MEDS: Lisinopril 10 MG Tab PO SCH (08:04)
--- NOTE | 2020-02-10 10:34 | PCM.DCSUM1 ---
Discharge Summary - Hospital Course HPI Initial Comments: Hailey presented to ER yesterday with increased weakness, for past few days, usually independent for meals, sit up and stand up at [facility]. Had a fall 2 weeks ago, forgot to lock the brakes on her front wheel walker and went to sit on it and walker went out from underneath her. Was having more left hip pain, not able to sit up for lunch today, spoke with Toby Osorio PA-C and Dr Darling, would advised transfer to ER for evaluation. History limited due patient's developmental delay but this morning states her left hip hurts, no fractures were seen on CT scans yesterday, no pneumonia on x-ray. Denies being short of breath, chest pain, cough, stomach doesn't hurt. Her sister's stated that they do have PT/OT at [facility] if she would need to continue therapies. [place] staff reported foul smelling urine but UA here is negative. Lactic acid was elevated in ER, received 1 dose of Zosyn & Vancomycin, but not continued on the floor. WBC was normal last night and this morning. She is on metformin in Janumet combination, was given dose last night but held this morning. No fevers. No hypotension. Diagnosis: Stroke: No - Discharge Data Discharge Date: 02/10/20 ([facility]) Discharge Disposition: DC/Tfer to SNF 03 Condition: Stable - Referral to Home Health Date of Face to Face Encounter: 02/10/20 Reason for Homebound Status: [facility] Primary Care Physician: Jatinder Darling MD Skilled Need: PT/OT - Discharge Diagnosis/Problem(s) (1) Elevated lactic acid level SNOMED Code(s): 1871125 ICD Code: R79.89 - OTHER SPECIFIED ABNORMAL FINDINGS OF BLOOD CHEMISTRY Status: Resolved Current Visit: Yes (2) Left hip pain SNOMED Code(s): 62063175 ICD Code: M25.552 - PAIN IN LEFT HIP Status: Acute Current Visit: Yes (3) Weakness SNOMED Code(s): 43319854 ICD Code: R53.1 - WEAKNESS Status: Acute Current Visit: Yes (4) Fall SNOMED Code(s): 6834731, 071265482 ICD Code: W19.XXXA - UNSPECIFIED FALL, INITIAL ENCOUNTER Status: Acute Current Visit: Yes (5) Diabetes SNOMED Code(s): 68991030 ICD Code: E11.9 - TYPE 2 DIABETES MELLITUS WITHOUT COMPLICATIONS Status: Chronic Current Visit: Yes Qualifiers: Diabetes mellitus type: type 2 Diabetes mellitus fdc insulin use: with intermediate accountant use (6) Hyperlipidemia SNOMED Code(s): 77149302 ICD Code: E78.5 - HYPERLIPIDEMIA, UNSPECIFIED Status: Chronic Current Visit: Yes (7) Insomnia SNOMED Code(s): 064008275 ICD Code: G47.00 - INSOMNIA, UNSPECIFIED Status: Chronic Current Visit: Yes (8) Hypertension SNOMED Code(s): 61552365 ICD Code: I10 - ESSENTIAL (PRIMARY) HYPERTENSION Status: Chronic Current Visit: Yes (9) Diverticula of colon SNOMED Code(s): 165583433, 713436046 ICD Code: K57.30 - DVRTCLOS OF LG INT W/O PERFORATION OR ABSCESS W/O BLEEDING Status: Chronic Current Visit: Yes (10) Age related cataract SNOMED Code(s): 23513833 ICD Code: H25.9 - UNSPECIFIED AGE-RELATED CATARACT Status: Chronic Current Visit: Yes (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, unspecified SNOMED Code(s): 3108655 ICD Code: F81.9 - DEVELOPMENTAL DISORDER OF SCHOLASTIC SKILLS, UNSPECIFIED Status: Chronic Current Visit: Yes Problem Details: congenital (12) CKD (chronic kidney disease) SNOMED Code(s): 969045022 ICD Code: N18.9 - CHRONIC KIDNEY DISEASE, UNSPECIFIED Status: Chronic Current Visit: Yes (13) Vitamin B12 deficiency SNOMED Code(s): 199673076 ICD Code: E53.8 - DEFICIENCY OF OTHER SPECIFIED B GROUP VITAMINS Status: Chronic Current Visit: Yes (14) GERD (gastroesophageal reflux disease) SNOMED Code(s): 445059841 ICD Code: K21.9 - GASTRO-ESOPHAGEAL REFLUX DISEASE WITHOUT ESOPHAGITIS Status: Chronic Current Visit: Yes - Patient Summary/Data Consults: Consultations 02/06/20 19:27 OT Evaluation and Treatment [CONS] Routine Please Evaluate and Treat. OT Reason for Consult: ADL's This query below is only for informational purposes and is not editable. PT Evaluation and Treatment [CONS] Routine Please Evaluate and Treat. PT Reason for Consult: Ambulation This query below is only for informational purposes and is not editable. Hospital Course: Hailey received 1 dose of Zosyn and Vancomycin in ER due to possible sepsis as her lactic acid was elevated but no source of infection was found, CXR negative, UA negative, no signs of cellulitis, WBC was normal. Platelets were elevated. She did have desaturation in ER, had been given Dilaudid for left hip pain, required 2 person assist in the ER. She also received an 1000 ml and 500 ml bolus, showed signs of fluid overload in ER, IV fluids stopped and given Lasix in ER . Weaned off oxygen on the floor by Sunday. Remained afebrile with normal WBCs throughout stay, CRP was 0.7. Lactic acid corrected to 0.9. Her metformin was discontinued on Sunday am as likely cause of elevated lactic acid also her GFR is 37 so decreased dose of Januvia to 50 mg and stopped Amaryl. Started low dose Humalog sliding scale, and reduced dose of Lantus to 6 units at bedtime as she had low blood sugars in the mornings on Sunday and Sunday. Her sugars were ranging 200-280s, last evening 110 prior to dinner, then this morning was 100. She was started Tylenol 500 mg taken in conjunction with Ibuprofen 200 mg every 6 hours for pain, she had a restless night Sunday pm but once Tylenol & Ibuprofen were scheduled, then she slept better and her mobility improved over the weekend. She was also feeding herself by the time of discharge. PT assessed yesterday, they recommended continuing PT at [facility]; OT stated that she could be evaluated in her living setting. COVID screening was negative this morning. - Patient Instructions Diet: Usual Diet as Tolerated Activity: As Tolerated Driving: Do Not Drive Showering/Bathing: May Shower Notify Provider of: Fever, Increased Pain Other/Special Instructions: Follow up with Dr Darling in 4-7 days. PT/OT evaluate & treat. - Discharge Plan *PRESCRIPTION DRUG MONITORING PROGRAM REVIEWED*: No *COPY OF PRESCRIPTION DRUG MONITORING REPORT IN PATIENT DELMAR: No Prescriptions/Med Rec: Insulin Lispro [Humalog] See Protocol SUBCUT TIDMEALS 30 Days #1 box SitaGLIPtin [Januvia] 50 mg PO DAILY 30 Days #30 tablet Ibuprofen [Motrin] 200 mg PO Q6H 7 Days #28 tablet Acetaminophen [Tylenol Extra Strength] 500 mg PO Q6H 7 Days #28 tablet Home Medications: Home Meds Aspirin [Lo-Dose Aspirin EC] 81 mg PO DAILY 07/24/17 [History] Cyanocobalamin (Vitamin B-12) [Cyanocobalamin] 1,000 mcg PO DAILY 02/06/20 [History] Diclofenac Sodium [Voltaren 1% Gel] 4 gm TOP BID 02/06/20 [History] Magnesium Hydroxide [Milk of Magnesia] 30 ml PO DAILY PRN 02/06/20 [History] Melatonin 6 mg PO BEDTIME 02/06/20 [History] Methimazole [Tapazole] 2.5 mg PO MOWEFR 02/06/20 [History] Multivitamin with Minerals [Multivitamins with Minerals] 1 each PO DAILY 02/06/20 [History] Omeprazole 20 mg PO ACBREAKFAST 02/06/20 [History] atorvaSTATin [Lipitor] 40 mg PO BEDTIME 02/06/20 [History] lisinopriL [Lisinopril] 10 mg PO DAILY 02/06/20 [History] methIMAzole [Methimazole] 5 mg PO SUTUTHSA 02/09/20 [History] Acetaminophen [Tylenol Extra Strength] 500 mg PO Q6H 7 Days #28 tablet 02/10/20 [Rx] Ibuprofen [Motrin] 200 mg PO Q6H 7 Days #28 tablet 02/10/20 [Rx] Insulin Glargine,Hum.Rec.Anlog [Lantus Solostar] 6 unit SQ BEDTIME #1 pen 02/10/20 [Rx] Insulin Lispro [Humalog] See Protocol SUBCUT TIDMEALS 30 Days #1 box 02/10/20 [Rx] SitaGLIPtin [Januvia] 50 mg PO DAILY 30 Days #30 tablet 02/10/20 [Rx] Forms: ED Department Discharge Referrals: Jatinder Darling MD [Primary Care Provider] - - Discharge Summary/Plan Comment DC Time >30 min.: No - General Info Date of Service: 02/10/20 Subjective Update: Hailey is feeding herself this morning, denies any pain anywhere, no further hypoxia, has not had any narcotics since ER. Had bowel movement yesterday. Functional Status: Reports: Pain Controlled, Tolerating Diet, Ambulating - Patient Data Vitals - Most Recent: Last Vital Signs Temp 97.9 F 02/10/20 03:15 Pulse 70 02/10/20 03:15 Resp 20 02/10/20 03:15 BP 142/84 H 02/10/20 08:04 Pulse Ox 92 L 02/10/20 03:15 Weight - Most Recent: 132 lb 4.8 oz Lab Results - Last 24 hrs: Laboratory Results - last 24 hr 02/09/20 02/09/20 02/09/20 Range/Units 11:37 17:14 19:43 POC Glucose 239 H D 110 D 228 H D (80-116) mg/dL SARS Virus RNA (PCR) (NEGATIVE) 02/10/20 02/10/20 Range/Units 07:14 08:40 POC Glucose 100 D (80-116) mg/dL SARS Virus RNA (PCR) Negative (NEGATIVE) RIN Results - Last 24 hrs: Microbiology 02/06/20 16:00 Aerobic Blood Culture - Preliminary Blood - Venous NO GROWTH AFTER 3 DAYS Anaerobic Blood Culture - Preliminary NO GROWTH AFTER 3 DAYS 02/06/20 16:05 Aerobic Blood Culture - Preliminary Blood - Venous - Lab Draw NO GROWTH AFTER 3 DAYS Anaerobic Blood Culture - Preliminary NO GROWTH AFTER 3 DAYS Med Orders - Current: Current Medications Acetaminophen (Tylenol Extra Strength) 500 mg PO Q6H [facility] Last Admin: 02/10/20 05:24 Dose: 500 mg Documented by: Albuterol (Proventil Neb Soln) 2.5 mg NEB Q2H PRN PRN Reason: Shortness Of Breath/wheezing Aspirin (Halfprin) 81 mg PO DAILY [facility] Last Admin: 02/10/20 08:03 Dose: 81 mg Documented by: Ibuprofen (Motrin) 200 mg PO Q6H [facility] Last Admin: 02/10/20 05:23 Dose: 200 mg Documented by: Insulin Glargine (Lantus Solostar) 6 units SUBCUT BEDTIME [facility] Last Admin: 02/09/20 20:44 Dose: 6 units Documented by: Insulin Human Lispro (Humalog) 0 unit SUBCUT TIDMEALS [facility]; Protocol Last Admin: 02/10/20 08:03 Dose: Not Given Documented by: Lisinopril (Prinivil) 10 mg PO DAILY [facility] Last Admin: 02/10/20 08:04 Dose: 10 mg Documented by: Melatonin (Melatonin) 6 mg PO BEDTIME [facility] Last Admin: 02/09/20 20:42 Dose: 6 mg Documented by: Pantoprazole Sodium (Protonix) 40 mg PO ACBREAKFAST [facility] Last Admin: 02/10/20 07:19 Dose: 40 mg Documented by: Sitagliptin Phosphate (Januvia) 50 mg PO DAILY [facility] Last Admin: 02/10/20 08:04 Dose: 50 mg Documented by: Sodium Chloride (Saline Flush) 10 ml FLUSH ASDIRECTED PRN PRN Reason: Keep Vein Open Last Admin: 02/08/20 16:14 Dose: 10 ml Documented by: Discontinued Medications Acetaminophen (Tylenol Arthritis Pain) 650 mg PO BID [facility] Last Admin: 02/07/20 11:20 Dose: Not Given Documented by: Acetaminophen (Tylenol) 650 mg PO Q4H PRN PRN Reason: Pain/Fever Albuterol (Proventil Neb Soln) 2.5 mg NEB ONETIME ONE Stop: 02/06/20 18:52 Last Admin: 02/06/20 18:56 Dose: 2.5 mg Documented by: Aspirin (Halfprin) 81 mg PO DAILY [facility] Last Admin: 02/07/20 11:20 Dose: Not Given Documented by: Furosemide (Lasix) 20 mg IVPUSH ONETIME ONE Stop: 02/06/20 18:52 Last Admin: 02/06/20 19:00 Dose: 20 mg Documented by: Glimepiride (Amaryl) 2 mg PO DAILY [facility] Last Admin: 02/07/20 11:19 Dose: Not Given Documented by: Glimepiride (Amaryl) 2 mg PO DAILY [facility] Last Admin: 02/09/20 09:09 Dose: 2 mg Documented by: Sodium Chloride (Normal Saline) 500 mls @ 500 mls/hr IV .BOLUS ONE Stop: 02/06/20 16:30 Last Admin: 02/06/20 16:10 Dose: 500 mls/hr Documented by: Sodium Chloride (Normal Saline) 1,000 mls @ 999 mls/hr IV .BOLUS ONE Stop: 02/06/20 17:40 Last Admin: 02/06/20 17:26 Dose: 999 mls/hr Documented by: Piperacillin Sod/Tazobactam (Sod 3.375 gm/ Sodium Chloride) 50 mls @ 100 mls/hr IV .ONCE ONE Stop: 02/06/20 17:12 Last Admin: 02/06/20 16:54 Dose: 100 mls/hr Documented by: Vancomycin HCl 1.25 gm/ Sodium (Chloride) 250 mls @ 167 mls/hr IV .ONCE ONE Stop: 02/06/20 18:13 Last Admin: 02/06/20 17:28 Dose: 167 mls/hr Documented by: Insulin Glargine (Lantus Solostar) 8 units SUBCUT BEDTIME [facility] Last Admin: 02/07/20 20:48 Dose: 8 units Documented by: Ketorolac Tromethamine (Toradol) 15 mg IVPUSH ONETIME ONE Stop: 02/06/20 17:18 Last Admin: 02/06/20 17:44 Dose: 15 mg Documented by: Lisinopril (Prinivil) 10 mg PO DAILY [facility] Last Admin: 02/07/20 11:20 Dose: Not Given Documented by: Melatonin (Melatonin) 6 mg PO DAILY [facility] Last Admin: 02/07/20 11:20 Dose: Not Given Documented by: Metformin HCl (Glucophage) 1,000 mg PO ONETIME ONE Stop: 02/06/20 22:25 Last Admin: 02/06/20 22:48 Dose: 1,000 mg Documented by: Non-Formulary Medication (Omeprazole [Omeprazole]) 20 mg PO DAILY [facility] Last Admin: 02/07/20 11:20 Dose: Not Given Documented by: Non-Formulary Medication (Sitagliptin Phos/Metformin Hcl [Janumet 50-1,000 Mg]) 1 tab PO BID [facility] Last Admin: 02/07/20 11:21 Dose: Not Given Documented by: - Exam General: Reports: Alert (person), Oriented (person, developmental delay), Cooperative, No Acute Distress Lungs: Reports: Clear to Auscultation, Normal Respiratory Effort Cardiovascular: Reports: Regular Rate, Regular Rhythm GI/Abdominal Exam: Normal Bowel Sounds, No Distention Extremities: No Pedal Edema, Joint Swelling (NT over left greater trochanter), Leg Pain
== END 2020-02-10 11:35 | DRG 641 ==
LOC: FB.ED 14:47 → FB.MS 19:40 → OBSVTOIN 02-07 10:31
PROVIDERS: ADMIT Family Medicine; ATTEND Family Medicine
DX: R53.1 Weakness (principal); E87.2 Acidosis; E11.22 Type 2 diabetes mellitus with diabetic chronic kidney disease; R62.50 Unspecified lack of expected normal physiological development in childhood; M25.552 Pain in left hip; E78.5 Hyperlipidemia, unspecified; R82.998 Other abnormal findings in urine; G47.00 Insomnia, unspecified; K57.90 Diverticulosis of intestine, part unspecified, without perforation or abscess without bleeding; K57.30 Diverticulosis of large intestine without perforation or abscess without bleeding; H25.9 Unspecified age-related cataract; F81.9 Developmental disorder of scholastic skills, unspecified; N18.9 Chronic kidney disease, unspecified; E53.8 Deficiency of other specified B group vitamins; K21.9 Gastro-esophageal reflux disease without esophagitis; Z20.828 Contact with and (suspected) exposure to other viral communicable diseases; Z66 Do not resuscitate; T38.3X5A Adverse effect of insulin and oral hypoglycemic [antidiabetic] drugs, initial encounter; I12.9 Hypertensive chronic kidney disease with stage 1 through stage 4 chronic kidney disease, or unspecified chronic kidney disease; W19.XXXA Unspecified fall, initial encounter; H91.90 Unspecified hearing loss, unspecified ear; H54.7 Unspecified visual loss; E03.9 Hypothyroidism, unspecified; D64.9 Anemia, unspecified; F79 Unspecified intellectual disabilities; M54.5 Low back pain; Z79.82 Long term (current) use of aspirin; Z79.899 Other long term (current) drug therapy; Z79.4 Long term (current) use of insulin
CPT/HCPCS: 36415 ×2; 70450; 71045; 72125; 72131; 72192; 80048; 80053; 81001; 83605 ×2; 84484 ×2; 85025 ×2; 85610; 85730; 87040 ×2; 93005; A9270 ×2; J1885; J1940; J2543; J3370; J7030; J7040; J7050 ×2; 82962; 86140; 96361; 96365; 96366; 96368; 96375; 97161-GP; 99284; 99285-25; G0378; J1815; J1815-GY; U0002

== ENCOUNTER 2022-01-05 15:37 | Emergency (ER) | payer MEDICARE, OTHER | END 2022-01-05 18:35 | disposition home or self-care (01) | LOC: FB.ED 15:37 | DX: S01.81XA Laceration without foreign body of other part of head, initial encounter (principal); I10 Essential (primary) hypertension; E11.9 Type 2 diabetes mellitus without complications; E03.9 Hypothyroidism, unspecified; Z79.82 Long term (current) use of aspirin; Z79.899 Other long term (current) drug therapy; Z79.4 Long term (current) use of insulin; W18.30XA Fall on same level, unspecified, initial encounter; Y92.002 Bathroom of unspecified non-institutional (private) residence as the place of occurrence of the external cause | CPT/HCPCS: 12014; 70450; 71045; 72125; 72170; 99284-25 ==